=== PATIENT | female | born 1970 | race Caucasian/White ===

== ENCOUNTER 2018-12-05 23:26 | Observation (INO) | payer OTHER ==
[2018-12-06 01:07] LABS: Absolute Monocytes 0.5 K/uL (0.1-1.3); Basophils % 0.4 % (0-1.3); Eosinophils % 0.5 % (0-4.4); Hematocrit 32.5 % (36.0-45.0); Lymphocytes % 46.6 % (15.3-44.8); MPV 10.2 fL (7.6-11.3); Monocytes % 6.2 % (3.3-12.3); RBC Red Blood Cell Count 3.82 M/uL (3.86-4.86)
[2018-12-06 01:09] LABS: Protime INR 0.97
[2018-12-06 01:48] LABS: ALT/SGPT 36 U/L (12-78); AST/SGOT 25 U/L (15-37); Albumin 3.8 g/dL (3.4-5.0); Alkaline Phosphatase 95 U/L (45-117); BUN Blood Urea Nitrogen 14 mg/dL (7-18); Bicarbonate 25 mmol/L (21-32); Bilirubin Direct < 0.1 mg/dL (0-0.2); Bilirubin Total 0.3 mg/dL (0.2-1.0); Glucose Level 105 mg/dL (74-106); NT PRO-BNP 155 pg/mL (<125); Protein, Total 7.3 g/dL (6.4-8.2); Sodium Level 144 mmol/L (136-145); Troponin (Emerg Dept Use Only) < 0.02 ng/mL (0.0-0.045)
[2018-12-06 01:50] LABS: Magnesium 1.4 mg/dL (1.8-2.4); Potassium 2.9 mmol/L (3.5-5.1)
[2018-12-06] MEDS ORDERED: Magnesium Sulfate 2gm IVPB 2 G/50 ML BAG IV ONE (02:36)
[2018-12-06] MEDS ORDERED: POTASSIUM 25 MEQ EFFERV TAB ONE (02:36)
--- NOTE | 2018-12-06 03:34 | ER ---
Nurse's Notes [facility] Name: Renetta Blankenship Age: 48 yrs Sex: Female : 1970 Arrival Date: 12/05/2018 Time: 23:30 Bed 8 Private MD: Markie Ling Diagnosis: Chest pain, unspecified;Hypomagnesemia;Hypokalemia Presentation: 12/05 23:45 Presenting complaint: Patient states: midsternal CP that radiates to shoulder for past aa1 couple hours and is also feeling nauseated. Reports she also feels like she can't catch her breath and believes it is bc her PCP recently switched her from Lasix to spironolactone and she has gained 10 lbs in 1 week. Transition of care: patient was not received from another setting of care. Onset of symptoms was December 05, 2018. Risk Assessment: Do you want to hurt yourself or someone else? Patient reports no desire to harm self or others. Initial Sepsis Screen: Does the patient meet any 2 criteria? No. Patient's initial sepsis screen is negative. Does the patient have a suspected source of infection? No. Patient's initial sepsis screen is negative. Care prior to arrival: None. 23:45 Method Of Arrival: Ambulatory aa1 23:45 Acuity: MILTON 2 aa1 Triage Assessment: 23:48 General: Appears in no apparent distress. comfortable, Behavior is calm, cooperative, aa1 appropriate for age. 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 - Social history:: Smoking status: Patient/guardian denies using tobacco. - Ebola Screening: : No symptoms or risks identified at this time. Screenin/28 00:11 Abuse screen: Denies threats or abuse. Denies injuries from another. Nutritional cc3 screening: No deficits noted. Tuberculosis screening: No symptoms or risk factors identified. Fall Risk Ambulatory Aid- None/Bed Rest/Nurse Assist (0 pts). Gait- Normal/Bed Rest/Wheelchair (0 pts) Mental Status- Oriented to own ability (0 pts). Assessment: 00:11 General: Appears in no apparent distress. comfortable, Behavior is calm, cooperative, cc3 appropriate for age. Pain: Complains of pain in chest Pain radiates to left arm Pain began suddenly. Neuro: Level of Consciousness is awake, alert, obeys commands, Oriented to person, place, time, situation, Appropriate for age. Cardiovascular: Reports chest pain, Patient's skin is warm and dry. Respiratory: Airway is patent Respiratory effort is even, unlabored, Respiratory pattern is regular, symmetrical. GI: Abdomen is round non-distended. : No signs and/or symptoms were reported regarding the genitourinary system. EENT: No signs and/or symptoms were reported regarding the EENT system. Derm: No signs and/or symptoms reported regarding the dermatologic system. Musculoskeletal: Circulation, motion, and sensation intact. Range of motion: intact in all extremities. 01:28 Reassessment: Patient appears in no apparent distress at this time. Patient and/or cc3 family updated on plan of care and expected duration. Pain level reassessed. Patient is alert, oriented x 3, equal unlabored respirations, skin warm/dry/pink. 02:18 Reassessment: Patient appears in no apparent distress at this time. Patient and/or cc3 family updated on plan of care and expected duration. Pain level reassessed. Patient is alert, oriented x 3, equal unlabored respirations, skin warm/dry/pink. 03:11 Reassessment: Patient appears in no apparent distress at this time. Patient and/or cc3 family updated on plan of care and expected duration. Pain level reassessed. Patient is alert, oriented x 3, equal unlabored respirations, skin warm/dry/pink. 04:25 Reassessment: Patient appears in no apparent distress at this time. Patient and/or cc3 family updated on plan of care and expected duration. Pain level reassessed. Patient is alert, oriented x 3, equal unlabored respirations, skin warm/dry/pink. Room available in 206, report called and handed over to RUTH Zamorano for continuity of care and management. 04:48 Reassessment: Patient appears in no apparent distress at this time. Patient and/or cc3 family updated on plan of care and expected duration. Pain level reassessed. Patient is alert, oriented x 3, equal unlabored respirations, skin warm/dry/pink. Patient left ER for admission vitally stable by wheelchair escorted by audio/video technician Lakeshia. Vital Signs: 12/05 23:48 BP 141 / 72; Pulse 52; Resp 18; Temp 97.6; Pulse Ox 98% on R/A; Weight 77.11 kg; Height aa1 5 ft. 3 in. (160.02 cm); Pain 8/10; 12/06 00:30 BP 124 / 74; Pulse 54; Resp 17 S; Pulse Ox 99% on R/A; cc3 01:00 BP 122 / 85; Pulse 52; Resp 15 S; Pulse Ox 98% on R/A; cc3 01:30 BP 120 / 68; Pulse 53; Resp 13 S; Pulse Ox 100% on R/A; cc3 02:30 BP 104 / 89; Pulse 52; Resp 18 S; Pulse Ox 100% on R/A; cc3 03:08 BP 91 / 52; Pulse 50; Resp 16 S; Pulse Ox 96% on R/A; cc3 03:39 BP 97 / 57; Pulse 49; Resp 17 S; Pulse Ox 98% on R/A; cc3 04:21 BP 140 / 85; Pulse 52; Resp 18 S; Pulse Ox 99% on R/A; cc3 12/05 23:48 Body Mass Index 30.11 (77.11 kg, 160.02 cm) aa1 ED Course: 12/05 23:30 Patient arrived in ED. es 23:30 Markie Ling MD is Private Physician. es 23:46 Triage completed. aa1 23:48 Arm band placed on right wrist. Patient placed in an exam room, on a stretcher. aa1 12/06 00:10 Inserted saline lock: 20 gauge in left antecubital area, using aseptic technique. jd3 00:11 Zoe Moss is Primary Nurse. cc3 00:11 Patient has correct armband on for positive identification. Placed in gown. Bed in low cc3 position. Call light in reach. Side rails up X 1. pvc monitor on. Pulse ox on. NIBP on. 00:11 Patient maintains SpO2 saturation greater than 95% on room air. cc3 00:59 X-ray completed. Portable x-ray completed in exam room. Patient tolerated procedure kw well. 00:59 XRAY Chest (1 view) In Process Unspecified. EDMS 01:17 cD Mckeon MD is Attending Physician. gs 03:32 Stephanie Martinez MD is Hospitalizing Provider. gs 04:25 No provider procedures requiring assistance completed. Patient admitted, IV remains in cc3 place. Administered Medications: 02:25 Drug: Potassium Effervescent Tablet 50 mEq Route: PO; jd3 03:11 Follow up: Response: No adverse reaction cc3 02:30 Drug: Magnesium Sulfate 2 grams Route: IVPB; Infused Over: 2 hrs; Site: left jd3 antecubital; 04:30 Follow up: Response: No adverse reaction; IV Status: Completed infusion; IV Intake: [id number] Intake: 04:30 IV: 50ml; Total: 50ml. cc3 Outcome: 03:33 Decision to Hospitalize by Provider. 04:25 Admitted to Med/surg accompanied by tech, via wheelchair, room 206, with chart, Report cc3 called to RUTH Zamorano 04:25 Condition: stable 04:25 Instructed on the need for admit, Demonstrated understanding of instructions. 04:48 Patient left the ED. cc3 Signatures: Dispatcher [employer] Layne Grey, RN RN aa1 Estefanía Ocampo Kimberlee Dc Mckeon MD MD Huber Rivera RN RN jd3 Zoe Moss cc3 Corrections: (The following items were deleted from the chart) 03:41 03:39 BP 97 / 57; Pulse 48bpm; Resp 17bpm; Spontaneous; Pulse Ox 98% RA; cc3 cc3
--- NOTE | 2018-12-06 03:34 | EDPHYS ---
Physician Documentation [facility] Name: Renetta Blankenship Age: 48 yrs Sex: Female : 1970 Arrival Date: 12/05/2018 Time: 23:30 Bed 8 Private MD: Markie Ling ED Physician Dc Mckeon HPI: 12/06 04:31 This 48 yrs old Female presents to ER via Ambulatory with complaints of Chest gs Pain, Shortness Of Breath. 04:31 The patient or guardian reports chest pain that is located primarily in the anterior gs chest wall. Onset: 2 day(s) ago. The pain does not radiate. Associated signs and symptoms: Pertinent positives: shortness of breath. The chest pain is described as a heaviness. Duration: The patient or guardian reports multiple episodes, that are intermittent, that wax and wane, with no pattern. Modifying factors: The symptoms are alleviated by nothing. the symptoms are aggravated by nothing. Severity of pain: At its worst the pain was moderate in the emergency department the pain has resolved. The patient has experienced similar episodes in the past, a few times. The patient has been recently seen by a physician: the patient's primary care provider. 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 - Social history:: Smoking status: Patient/guardian denies using tobacco. - Ebola Screening: : No symptoms or risks identified at this time. ROS: 12/06 04:31 All other systems are negative. gs Exam: 04:31 Head/Face: Normocephalic, atraumatic. Eyes: Pupils equal round and reactive to light, gs extra-ocular motions intact. Lids and lashes normal. Conjunctiva and sclera are non-icteric and not injected. Cornea within normal limits. Periorbital areas with no swelling, redness, or edema. ENT: Nares patent. No nasal discharge, no septal abnormalities noted. Tympanic membranes are normal and external auditory canals are clear. Oropharynx with no redness, swelling, or masses, exudates, or evidence of obstruction, uvula midline. Mucous membranes moist. Neck: Trachea midline, no thyromegaly or masses palpated, and no cervical lymphadenopathy. Supple, full range of motion without nuchal rigidity, or vertebral point tenderness. No Meningismus. Chest/axilla: Normal chest wall appearance and motion. Nontender with no deformity. No lesions are appreciated. Cardiovascular: Regular rate and rhythm with a normal S1 and S2. No gallops, murmurs, or rubs. Normal PMI, no JVD. No pulse deficits. Respiratory: Lungs have equal breath sounds bilaterally, clear to auscultation and percussion. No rales, rhonchi or wheezes noted. No increased work of breathing, no retractions or nasal flaring. Abdomen/GI: Soft, non-tender, with normal bowel sounds. No distension or tympany. No guarding or rebound. No evidence of tenderness throughout. Back: No spinal tenderness. No costovertebral tenderness. Full range of motion. Skin: Warm, dry with normal turgor. Normal color with no rashes, no lesions, and no evidence of cellulitis. MS/ Extremity: Pulses equal, no cyanosis. Neurovascular intact. Full, normal range of motion. Neuro: Awake and alert, GCS 15, oriented to person, place, time, and situation. Cranial nerves II-XII grossly intact. Motor strength 5/5 in all extremities. Sensory grossly intact. Cerebellar exam normal. Normal gait. 04:31 Constitutional: The patient appears alert, awake. 04:31 ECG was reviewed by the Attending Physician. Vital Signs: 12/05 23:48 BP 141 / 72; Pulse 52; Resp 18; Temp 97.6; Pulse Ox 98% on R/A; Weight 77.11 kg; Height aa1 5 ft. 3 in. (160.02 cm); Pain 8/10; 12/06 00:30 BP 124 / 74; Pulse 54; Resp 17 S; Pulse Ox 99% on R/A; cc3 01:00 BP 122 / 85; Pulse 52; Resp 15 S; Pulse Ox 98% on R/A; cc3 01:30 BP 120 / 68; Pulse 53; Resp 13 S; Pulse Ox 100% on R/A; cc3 02:30 BP 104 / 89; Pulse 52; Resp 18 S; Pulse Ox 100% on R/A; cc3 03:08 BP 91 / 52; Pulse 50; Resp 16 S; Pulse Ox 96% on R/A; cc3 03:39 BP 97 / 57; Pulse 49; Resp 17 S; Pulse Ox 98% on R/A; cc3 04:21 BP 140 / 85; Pulse 52; Resp 18 S; Pulse Ox 99% on R/A; cc3 12/05 23:48 Body Mass Index 30.11 (77.11 kg, 160.02 cm) aa1 MDM: 02:12 Patient medically screened. 04:31 Differential diagnosis: abnormal EKG, acute myocardial infarction, coronary artery gs disease pleurisy, pneumonia. Data reviewed: vital signs, nurses notes, lab test result(s), EKG, radiologic studies, and as a result, I will admit patient. 12/06 00:43 Order name: Basic Metabolic Panel; Complete Time: 02:19 [facility] 12/06 00:43 Order name: CBC with Diff; Complete Time: 02:19 [facility] 12/06 00:43 Order name: LFT's; Complete Time: 02:19 [facility] 12/06 00:43 Order name: Magnesium; Complete Time: 02:19 [facility] 12/06 00:43 Order name: NT PRO-BNP; Complete Time: 02:19 [facility] 12/06 00:43 Order name: PT-INR; Complete Time: 02:19 [facility] 12/06 00:43 Order name: Troponin (emerg Dept Use Only); Complete Time: 02:19 [facility] 12/06 00:43 Order name: XRAY Chest (1 view) [facility] 12/06 03:58 Order name: Echo with Doppler [facility] 12/06 03:58 Order name: Lipid Profile [facility] 12/06 03:58 Order name: Lipid Profile [facility] 12/06 03:58 Order name: Troponin I [facility] 12/06 03:58 Order name: Troponin I [facility] 12/06 00:22 Order name: EKG; Complete Time: 00:23 [facility] 12/06 00:22 Order name: EKG - Nurse/Tech; Complete Time: 00:22 [facility] 12/06 00:43 Order name: Cardiac monitoring; Complete Time: 00:44 [facility] 12/06 00:43 Order name: IV Saline Lock; Complete Time: 00:44 [facility] 12/06 00:43 Order name: Labs collected and sent; Complete Time: 00:52 [facility] 12/06 00:43 Order name: O2 Per Protocol; Complete Time: 00:44 [facility] 12/06 00:43 Order name: O2 Sat Monitoring; Complete Time: 00:44 [facility] 12/06 03:58 Order name: Heart Healthy [facility] EC:31 Rate is 60 beats/min. Rhythm is regular. [place] interval is prolonged. QRS interval is gs normal. T waves are Inverted in lead aVL. Clinical impression: NSR w/ Non-specific ST/T Changes. Interpreted by me. Administered Medications: 02:25 Drug: Potassium Effervescent Tablet 50 mEq Route: PO; jd3 03:11 Follow up: Response: No adverse reaction cc3 02:30 Drug: Magnesium Sulfate 2 grams Route: IVPB; Infused Over: 2 hrs; Site: left [facility] antecubital; 04:30 Follow up: Response: No adverse reaction; IV Status: Completed infusion; IV Intake: [id number] Disposition: 04:31 Critical Care:. Disposition: 12/06/18 03:33 Hospitalization ordered by Stephanie Martinez for Observation. Preliminary diagnosis are Chest pain, unspecified, Hypomagnesemia, Hypokalemia. - Bed requested for Telemetry/MedSurg (observation). - Status is Observation. cc3 - Condition is Stable. - Problem is new. - Symptoms have improved. UTI on Admission? No Critical care time excluding procedures: 04:31 Critical care time: Bedside Care: 10 minutes, Consultation: 10 minutes, Family gs Intervention: 10 minutes. Total time: 30 minutes Signatures: Dispatcher [employer] [facility] Teodora Castañeda RN RN mw Autenrieth, Alissa, RN RN aa1 Dc Mckeon MD MD gs Davies, Jonathon, RN RN jd3 Zoe Moss cc3 Corrections: (The following items were deleted from the chart) 04:09 03:33 Hospitalization Ordered by Stephanie Martinez MD for Observation. Preliminary mw diagnosis is Chest pain, unspecified; Hypomagnesemia; Hypokalemia. Bed requested for Telemetry/MedSurg (observation). Status is Observation. Condition is Stable. Problem is new. Symptoms have improved. UTI on Admission? No. 04:48 04:09 12/06/2018 03:33 Hospitalization Ordered by Stephanie Martinez MD for Observation. cc3 Preliminary diagnosis is Chest pain, unspecified; Hypomagnesemia; Hypokalemia. Bed requested for Telemetry/MedSurg (observation). Status is Observation. Condition is Stable. Problem is new. Symptoms have improved. UTI on Admission? No. mw
[2018-12-06] MEDS ORDERED: ACETAMINOPHEN 500 MG TAB PO PRN (03:54)
[2018-12-06] MEDS ORDERED: ALPRAZOLAM 0.25 MG TABLET PO PRN (03:54)
[2018-12-06] MEDS ORDERED: MORPHINE 4 MG/ML SYR IV PRN (03:54)
[2018-12-06 05:07] VITALS: BMI 30.1
[2018-12-06 05:46] VITALS: O2SAT 99
--- NOTE | 2018-12-06 05:58 | EKG ---
Test Date: 2018-12-05 Test Time: 23:55:41 Licensed Occupational Therapy Assistant: JORI MEASUREMENT RESULTS: Intervals: Rate: 60 MD: 274 QRSD: 82 QT: 432 QTc: 432 Calder: P: 64 MD: 274 QRS: 71 T: 65 INTERPRETIVE STATEMENTS: Sinus rhythm with 1st degree AV block Nonspecific ST abnormality Abnormal ECG Compared to ECG 11/04/2014 14:49:56 ST (T wave) deviation now present Electronically Signed On 12-06-18 05:57:36 CDT by Timothy Maicel
[2018-12-06] MEDS ORDERED: METOPROLOL TAR 50 MG TAB PO SCH (06:00)
[2018-12-06 07:10] LABS: HDL Cholesterol 61 mg/dL (40-60); LDL Cholesterol, Calculated 38 (<130); Troponin I < 0.02 ng/mL (0.0-0.045)
[2018-12-06] MEDS ORDERED: POTASSIUM CL SA 10 MEQ TAB PO ONE (07:30)
--- NOTE | 2018-12-06 08:01 | P.HP ---
Certification for Inpatient Patient admitted to: Observation With expected LOS: <2 Midnights Patient will require the following post-hospital care: None Practitioner: I am a practitioner with admitting privileges, knowledge of patient current condition, hospital course, and medical plan of care. Services: Services provided to patient in accordance with Admission requirements found in Title 42 Section 412.3 of the Code of Federal Regulations Patient History Date of Service: 12/06/18 Reason for admission: Chest pain rule out acute coronary syndrome History of Present Illness: Patient is a 48-year-old female came to the hospital with chest discomfort. It was mainly in the sternal region. There was radiation to the left arm. Patient started having the symptoms around 11:30 p.m.. She came into the hospital for further evaluation. In the ER, patient had EKGs and troponins which were negative. Patient does have a history of hypertension, dyslipidemia , and diabetes. Patient will be admitted to the hospital for further treatment. Will do an echocardiogram and a stress test this morning. Will determine further intervention after these tests are completed. Allergies No Known Drug Allergies Allergy (Verified 12/06/18 05:00) Unknown No Known Allergies Allergy (Uncoded 12/06/18 05:00) Unknown Home Medications: Atorvastatin Calcium 40 mg PO BEDTIME 12/06/18 Estradiol [Estrace] 1 mg PO DAILY 12/06/18 Lansoprazole [Prevacid] 40 mg PO DAILY 12/06/18 Lisinopril 20 mg PO DAILY 12/06/18 Metformin HCl 500 mg PO BID 12/06/18 Spironolactone 25 mg PO BID 12/06/18 Zolpidem Tartrate [Ambien] 10 mg PO BEDTIME 12/06/18 clonazePAM [Klonopin] 1 mg PO DAILYPRN PRN 12/06/18 - Past Medical/Surgical History Has patient received pneumonia vaccine in the past: No Diabetic: Yes -: DM -: Hyperlipidemia -: HTN -: Anxiety -: Insomnia -: GERD -: Hysterctomy -: Wrist Surgery - Family History Father Medical History: Hypertension, Diabetes Mother Medical History: Hypertension, Diabetes Brother Medical History: Hypertension - Social History Smoking Status: Never smoker Alcohol use: Yes CD- Drugs: No Caffeine use: No Place of Residence: Home Review of Systems 10-point ROS is otherwise unremarkable Physical Examination - Vital Signs Temperature: 96.9 F Blood Pressure: 138/69 Pulse: 48 Respirations: 18 Pulse Ox (%): 97 - Physical Exam General: Alert, In no apparent distress, Oriented x3 HEENT: Atraumatic, Mucous membr. moist/pink, EOMI, Sclerae nonicteric Neck: Supple, 2+ carotid pulse no bruit, No LAD, Without JVD or thyroid abnormality Respiratory: Clear to auscultation bilaterally, Normal air movement Cardiovascular: Regular rate/rhythm, Normal S1 S2 Gastrointestinal: Normal bowel sounds, Soft and benign, Non-distended, No tenderness Musculoskeletal: No clubbing, No swelling, No tenderness Integumentary: No rashes Neurological: Normal speech, Normal strength at 5/5 x4 extr, Normal tone, Sensation intact, Cranial nerves 3-12 intact, Normal affect Lymphatics: No axilla or inguinal lymphadenopathy - Studies Laboratory Data (last 24 hrs) 12/06/18 00:10: PT 11.5, INR 0.97 12/06/18 00:10: WBC 8.6, Hgb 10.7 L, Hct 32.5 L, Plt Count 232 12/06/18 00:10: Sodium 144, Potassium 2.9 L*, BUN 14, Creatinine 1.07, Glucose 105, Magnesium 1.4 L*, Total Bilirubin 0.3, AST 25, ALT 36, Alkaline Phosphatase 95 Assessment & Plan - Problems (Diagnosis) (1) Chest pain, rule out acute myocardial infarction Current Visit: Yes Status: Acute (2) Hypertension Current Visit: Yes Status: Acute (3) Type 2 diabetes mellitus Current Visit: Yes Status: Acute (4) Dyslipidemia Current Visit: Yes Status: Acute - Plan 1. Serial troponins and EKG 2. Cardiology consultation 3. Echocardiogram and stress test this morning 4. Anti-platelet therapy, anti coagulation, beta-trevon, statin, and O2 as needed 5. IV morphine for pain 6. Nitro p.r.n. Discharge Plan: Home Plan to discharge in: Greater than 2 days - Advance Directives Does patient have a Living Will: No Does patient have a Durable POA for Healthcare: No - Code Status/Comfort Care Code Status Assessed: Yes Code Status: Full Code Critical Care: No Time Spent Managing PTS Care (In Minutes): 45
--- NOTE | 2018-12-06 08:22 | RAD REPORT ---
EXAM DESCRIPTION: Rosio Single View12/06/2018 1:02 am CLINICAL HISTORY: Chest pain COMPARISON: 2013 FINDINGS: The lungs appear clear of acute infiltrate. The heart is normal size IMPRESSION: No acute abnormalities displayed
[2018-12-06] MEDS ORDERED: REGADENOSON 0.4 MG/5 ML SYR IV ONE (08:51)
[2018-12-06] MEDS ORDERED: ASPIRIN EC 81 MG TAB PO SCH (09:00)
[2018-12-06] MEDS ORDERED: ENOXAPARIN 40 MG/0.4 ML SQ SCH (09:00)
--- NOTE | 2018-12-06 12:03 | RAD REPORT ---
EXAM DESCRIPTION: NM - Rest Stress Cardiac Imaging - 12/06/2018 11:57 am CLINICAL HISTORY: Chest pain COMPARISON: None. TECHNIQUE: The patient was administered approximately 10 mCi of Tc 99m Sestamibi prior to resting SP ECT imaging of the heart. The patient was then administered approximately 30 mCi of Tc 99m Sestamibi following exercise or pharmacologic stress. Multiplanar SPECT images were reviewed. FINDINGS: The end diastolic volume is 99 ml, the end systolic volume is 39 ml, and the ejection frac tion is 61 %. Moderate-sized area diminished activity seen in the midportion of the anterior wall on stress imaging . Findings are absent or less pronounced on rest sequencing. No other areas of suspected stress ische etelvina. No scarring identified. IMPRESSION: Anterior wall stress ischemia. Ventricular volumes and ejection fraction are normal range.
--- NOTE | 2018-12-06 12:20 | TREADPHA ---
DX: CHEST PAIN Date of Study: 12/06/2018 Ht: 5 3 Wt: 170 lb 0 oz Consulting Physician: ANGIE MEDICATIONS: TYLENOL, XANAX, ASPIRIN, LOVENOX HISTORY: 48 YEAR OLD FEMALE WITH COMPLAINTS OF CHEST PAIN. HISTORY OF DIABETES MELLITUS AND HYPERTENSION. PHYSICIAL EXAMINATION: RESTING B.P.: 150/90 RESTING H.R.: 56 RESTING EKG: NORMAL PROTOCOL: LEXISCAN EXERCISE TIME: 3:30 B.P. AT PEAK STRESS: 140/81 IMPRESSION: LEXISCAN INJECTED, CARDIOLITE INJECTED PER PROTOCOL. SEE NUCLEAR MEDICINE REPORT. NO SUPRAVENTRICULAR TACHYCARDIA. NO VENTRICULAR TACHYCARDIA. NO PREMATURE VENTRICULAR COMPLEXES. DENIED CHEST PAIN. NON-DIAGNOSTIC ELECTROCARDIOGRAM WITH LEXISCAN STRESS.
--- NOTE | 2018-12-06 12:23 | ECHO ---
HEIGHT: 5 ft 3 in WEIGHT: 170 lb 0 oz DATE OF STUDY: 12/06/[address]: Stephanie Martinez MD 2-DIMENSIONAL: YES M.MODE: YES DOPPLER: YES COLOR FLOW: YES TDS: PORTABLE: DEFINITY: BUBBLE STUDY: DIAGNOSIS: CHEST PAIN CARDIAC HISTORY: CATHERIZATION: NO SURGERY: NO PROSTHETIC VALVE: NO PACEMAKER: NO MEASUREMENTS (cm) DIASTOLIC (NORMALS) SYSTOLIC (NORMALS) IVSd 1.0 (0.6-1.2) LA Diam 3.3 (1.9-4.0) LVEF 64% LVIDd 4.5 (3.5-5.7) LVIDs 2.9 (2.0-3.5) %FS 35% LVPWd 0.9 (0.6-1.2) Ao Diam 2.2 (2.0-3.7) 2 DIMENSIONAL ASSESSMENT: RIGHT ATRIUM: NORMAL LEFT ATRIUM: NORMAL RIGHT VENTRICLE: NORMAL LEFT VENTRICLE: NORMAL TRICUSPID VALVE: NORMAL MITRAL VALVE: NORMAL PULMONIC VALVE: NORMAL AORTIC VALVE: NORMAL PERICARDIAL EFFUSION: NONE AORTIC ROOT: NORMAL LEFT VENTRICULAR WALL MOTION: NORMAL DOPPLER/COLOR FLOW: TRACE MITRAL AND TRICUSPID REGURGITATION. NORMAL RIGHT VENTRICULAR SYSTOLIC PRESSURE. COMMENTS: NORMAL 2-DIMENSIONAL ECHOCARDIOGRAM. TRACE MITRAL AND TRICUSPID REGURGITATION. TECHNOLOGIST: RUDY MOSS
[2018-12-06 15:17] VITALS: BP 134/66; TEMP 97.9
[2018-12-06 15:38] LABS: Urine Appearance CLOUDY; Urine Bilirubin NEGATIVE (NEG); Urine Blood 1+ (NEG); Urine Color YELLOW; Urine Glucose NEGATIVE (NEG); Urine Protein NEGATIVE (NEG); Urine Specific Gravity 1.015 (1.005-1.030); Urine Urobilinogen 0.2 mg/dL (0.2-1.0); Urine pH 6.5 (5.0-7.0)
[2018-12-06 15:44] LABS: Urine Microscopic Reflex ORDER UMIC
[2018-12-06 15:57] LABS: Urine Bacteria >50 /HPF (<20); Urine Culture Reflex Order REFLEXED; Urine RBC <5 /HPF (NONE SEEN); Urine Trichomonas PRESENT (NONE SEEN)
== END 2018-12-06 16:07 | disposition home or self-care (01) ==
LOC: ER 23:26 → ERHOLD 12-06 03:55 → 2ND 12-06 04:26
PROVIDERS: ADMIT Hospitalist; ATTEND Hospitalist
DX: R07.9 Chest pain, unspecified (principal); I10 Essential (primary) hypertension; E11.9 Type 2 diabetes mellitus without complications; E78.5 Hyperlipidemia, unspecified
CPT/HCPCS: 36415; 71045; 78452; 80048; 80061; 80076; 81003; 81015; 83735; 83880; 84132; 84484; 85025; 85610; 87077; 87086; 87088; 87186; 93005; 93017; 93306; 96365; 96366; 99285; A9500; G0378; J1650; J2785; J3475

== ENCOUNTER 2021-01-02 19:52 | Inpatient (IN) | payer BC ==
--- OUTSIDE RECORDS SUMMARY | 2021-01-02 19:58 | XMS REPORT | Continuity of Care Document ---
:1970 Author Organization [facility] t Address [address] [place] [address] Care Team Providers Name Role Phone WALKER Attending Clinician Unavailable Payers Payer Name Policy Type Policy Number Effective Date Expiration Date S ource Problems Condition Condition Condition Status Onset Resolution Last Treating Co mments Source Name Details Category Date Date Treatment Clinician Date Malabsorpt Malabsorpt Problem Active [facility] Malnutriti Malnutriti Problem Active [facility] [place] [facility] Vitamin D Vitamin D Problem Active [facility] deficiency deficiency [facility] [place] [facility] Allergies, Adverse Reactions, Alerts Allergy Allergy Status Severity Reaction(s) Onset Inactive Treating Comm ents Source Name Type Date Date Clinician No Known DA Active U 2011-09 [facility] All[facility]ie 09-19 [facility] 00:00: [address] Medications This patient has no known medications. Vital Signs Vital Name Observation Time Observation Value Comments Source Systolic blood 2020-09-17 15:39:00 116 mm[Hg] [facility] [place] [facility] Diastolic blood 2020-09-17 15:39:00 69 mm[Hg] [facility] [place] [facility] Body height 2020-09-17 15:39:00 62 [in_us] [facility] [place] [facility] Body mass index 2020-09-17 15:39:00 26.24 kg/m2 [facility] rs[facility] of (BMI) [Ratio] [place] [facility] Weight 2020-09-17 15:39:00 143.4375 [lb_av] [facility] [place] [facility] Body temperature 2020-09-17 15:39:00 96.9 [degF] [facility] [place] [facility] Heart Rate 2020-09-17 15:39:00 73 /min [facility] [place] [facility] Systolic blood 2020-09-17 15:30:00 110 mm[Hg] [facility] [place] [facility] Diastolic blood 2020-09-17 15:30:00 73 mm[Hg] [facility] [place] [facility] Body height 2020-09-17 15:30:00 62 [in_us] [facility] [place] [facility] Body mass index 2020-09-17 15:30:00 35.4 kg/m2 Unive rsity of (BMI) [Ratio] [place] [facility] Weight 2020-09-17 15:30:00 193.5625 [lb_av] [facility] [place] [facility] Body temperature 2020-09-17 15:30:00 97.2 [degF] [facility] [place] [facility] Heart Rate 2020-09-17 15:30:00 77 /min [facility] [place] [facility] Procedures This patient has no known procedures. Encounters Start End Encounter Admission Attending Care Care Encounter Source Date/Time Date/Time Type Type Clinicians Facility Department ID 2020-12-30 2020-12-30 Outpatient [id number] 14:20:00 14:20:00 2020-10-09 2020-10-09 Outpatient [facility] [id number] [facility] 06:59:00 06:59:00 2020-09-29 2020-09-29 Outpatient [id number] [facility]00[facility] 2020-09-17 2020-09-17 Appointmen KASSI JAVIER [id number] [facility] 15:15:00 15:15:00 t; FALGUNI JAVIER M.D. [facility] Oscar MONTES DE OCA M.D[facility] ans Results Test Description Test Time Test Comments Results Result Comments Source [QL] CBC (INCLUDES DIFF/PLT) 2020-09-17 16:24:00 Test Item Value Reference Range Interpretation Comme nts WHITE BLOOD CELL COUNT (test code = WHITE BLOOD CELL 8.7 {Thousa nd/u} 3.8-10.8 N COUNT) RED BLOOD CELL COUNT (test code = RED BLOOD CELL 4.28 {Million/uL} 3.80-5.10 N COUNT) HEMOGLOBIN; Below Low Threshold (test code = 11.5 g/dl 11.7-15.5 70254-4) HEMATOCRIT; Normal (test code = 4544-3) 36.2 % 35.0-45.0 N MCV; Normal (test code = 787-2) 84.6 fL 80.0-100.0 N MCHC; Below Low Threshold (test code = 37590-0) 31.8 g/dl 32.0-3 6.0 RDW; Normal (test code = 788-0) 13.0 % 11.0-15.0 N PLATELET COUNT; Normal (test code = 777-3) 326 {Thousand/u} 140-400 N MPV; Normal (test code = 37326-0) 12.0 fL 7.5-12.5 N ABSOLUTE NEUTROPHILS (test code = ABSOLUTE 4759 {cells/uL} 1500-780 0 N NEUTROPHILS) ABSOLUTE LYMPHOCYTES (test code = ABSOLUTE 3323 {cells/uL} 850-3900 N LYMPHOCYTES) ABSOLUTE MONOCYTES (test code = ABSOLUTE MONOCYTES) 539 {cells/uL} 200-950 N ABSOLUTE EOSINOPHILS (test code = ABSOLUTE 26 {cells/uL} 15-500 N EOSINOPHILS) ABSOLUTE BASOPHILS (test code = ABSOLUTE BASOPHILS) 52 {cells/uL} 0 -200 N NEUTROPHILS (test code = NEUTROPHILS) 54.7 % N LYMPHOCYTES (test code = LYMPHOCYTES) 38.2 % N MONOCYTES; Normal (test code = 48991-5) 6.2 % N EOSINOPHILS; Normal (test code = 27140-2) 0.3 % N BASOPHILS; Normal (test code = 71837-4) 0.6 % N [facility][QL] PTH, INTACT (WITHOUT CALCIUM)2020-09-17 16:24:00 Test Item Value Reference Range Interpretation Comments PARATHYROID 55 pg/ml 14-64 N Interpretive Gu acacia Intact HORMONE, INTACT PTH (test code = Calcium-------- PARATHYROID HORMONE, INTACT) -------Norm al Parathyroid Normal NormalHypoparat hyroidism Low or Low Norm al LowHyperparathy roidism Primary Normal or High High Secondary High Normal or Low Tertiary High HighNon-Parathy roid Hypercalcemia Low or Low Normal High [facility][QL] VITAMIN E (TOCOPHEROL)2020-09-17 16:24:00 Test Item Value Reference Range Interpretation Comments ALPHA-TOCOPHEROL 29.9 mg/L Reference R amandeep (test code = 5.7-19.9 mg/L ALPHA-TOCOPHEROL) Levels of alpha-tocopherol <5 mg/L are consistent with Vitamin E deficiency in adults.Vitamin supplementation within 24 hours prior to blood draw may affect the accuracy of results. T his test was developed and i ts analytical perf ormance characteristics have been determined by [employer]. It has not been cleared or approved by theFDA. This as say has been validated pursu ant to the CLIA regulation s and is used for clinic al purposes. [id number] 2.3 mg/L <4.4 This test was developed and SOFIA (test code = its analyt ical performance [id number] characteri stics have been SOFIA) determined by [employer]. It has not been cleared or approved by theFDA. This as say has been validated pursu ant to the CLIA regulation s and is used for clinic al purposes. [facility][QL] FOLATE, [id number] 16:24:00 Test Item Value Reference Range Interpretation Comments FOLATE, SERUM (test 16.9 ng/ml N Referenc e Range code = FOLATE, Low: SERUM) <3.4 Borderline: 3.4-5.4 Normal: >5.4 [facility][QL] TSH, 3RD [id number] 16:24:00 Test Item Value Reference Range Interpretation Comments TSH; Normal (test 1.81 {MIU/L} N Reference Range code = 44501-8) > or = 20 Years 0.40-4.5 0 Range s First trimes ter 0.26-2.66 Second trimeste r 0.55-2.73 Third trimester 0.43-2.91 [facility][QL] VITAMIN [id number] 16:24:00 Test Item Value Reference Range Interpretation Comments VITAMIN B12 (test code = VITAMIN 536 pg/ml 200-1100 N B12) [facility][QL] VITAMIN B1, WHOLE [id number] 16:24:00 Test Item Value Reference Range Interpretation Comments VITAMIN B1, WHOLE 129 nmol/L 78-185 Vitamin corcoran pplementation BLOOD (test code = within 24 hours prior VITAMIN B1, WHOLE toblood dr clark may affect BLOOD) the accuracy of results. This test was developed and its analyti randall performance characteristics have been determined by [employer]. It has not been cleared or approved by theFDA. This assay has been validated pursuant to the CLIA reg ulations and is used for clinical purposes. [facility][QL] HEMOGLOBIN [id number] 16:24:00 Test Item Value Reference Range Interpretation Comments HEMOGLOBIN A1c; 6.8 {% of <5.7 For someone without Above High total} known diabetes, a Threshold (test hemoglobin A 1cvalue of code = 4548-4) 6.5% or great er indicates that they may have diabet es and this should be confirmed with a follow-up test. For someone with kn own diabetes, a dianne ue <7% indicates that their diabetes is wel l controlled and a value greater than or equal to 7% indicates suboptimal cont rol. A1c targets justin uld be individualized based on duration of diabetes, age, comorbid condit ions, and other considerations. Currently, no consensus exist s regarding use ofhemoglobin A1 c for diagnosis of di abetes for children. [facility][QL] VITAMIN A (RETINOL)2020-09-17 16:24:00 Test Item Value Reference Range Interpretation Comments VITAMIN A (test 103 {mcg/dl} 38-98 Clin Chem Vol. code = VITAMIN A) 34.No.8. p [id number]. 1998Vitamin supplementation within 24 hours prior to blood draw may affect the accuracy of res ults. This test was d soledad and its analyti randall performance characteristics have been determined by [employer]. It has not been cleared or approved by theFDA. This assay has been valida sebastian pursuant to the CLIA regulations and is used for clinical pu rposes. [facility][Q] QUESTASSURED 25-OH VIT D, (D2,D3), LC/MS/MS 2020-09-17 16:24:00 Test Item Value Reference Range Interpretation Comments VITAMIN D, 37 ng/ml 30-100 (Note) Vitamin D, 25-Hydroxy 25-OH, TOTAL reports concent rations of two (test code = common forms, 2 5-OHD2 and VITAMIN D, 25-OHD3. 25-OHD 3 indicates both 25-OH, TOTAL) endogenous pro duction and supplementation . 25-OHD2 is an indicator of ex ogenous sources such as diet o r supplementation . Therapy is based on measu rement of Total 25-OHD, with le vels <20 ng/mL indicative of V itamin D deficiency, whi le levels between 20 ng/m L and 30 ng/mL suggest insuffi ciency. Optimal levels are > or = 30 ng/mL. Vitamin D is fa t-soluble and therefore inadv ertent or intentional ing estion of excessively hig h amounts could be toxic. Studi es in children and adults sugg est blood levels would need to e xceed 150 ng/mL before there i s any concern. Tamir HAWKINS, Marifer MIRAMONTES, Nadeen sanderson PEÑA, et al. Evaluation, madelyn atment and prevention of v itamin D deficiency: an Endocrine Society clinica l practice guideline. J Cl in Endocrinol Metab. 2011;96( 7):1911-30. For additional info rmation, please refer to http://[employer]/faq/FAQ19 9 VITAMIN D, 37 ng/ml Reference range : Not established 25-OH, D3 (test code = VITAMIN D, 25-OH, D3) VITAMIN D, <4.0 (Note)Reference range: Not 25-OH, D2 established Thi s test was (test code = developed and i ts analytical VITAMIN D, performancechar acteristics have 25-OH, D2) been determined by [employer]. It has not beencle ared or approved by the [place] Food and Drug Administration. Thisassay has been validated pursuant to the CLIA regulation and is usedfor Clinical purpos es.MDFmed [id number] [address],[address] [facility] [id number] 00MicDonn Herrera Note 1 No te 1 For additional info rmation, please refer to http://[employer] n[employer]/faq/FAQ19 9 (This link is being provided for informational/e ducational purposes only.) [facility][QL] LIPID [id number] 16:24:00 Test Item Value Reference Range Interpretation Comments CHOLESTEROL, 286 mg/dl <200 TOTAL; Above High Threshold (test code = 2093-3) HDL CHOLESTEROL; 61 mg/dl > OR = 50 N Normal (test code = 2085-9) TRIGLYCERIDES; 431 mg/dl <150 If a non-fast ing specimen Above High was collected, Threshold (test considerrepe at code = 2571-8) triglyceride testing on a fasting specime nif clinically debra cated. Tatiana et al. J. of Clin. Lipidol. 2015;9:129-169. LDL-CHOLESTEROL See Comment LDL choleste rol not (test code = calculated. Tri glyceride 27273-2) levelsgreater t quinones 400 mg/dL invalidat e calculated LDL results. Reference range : <100 Desirable range <100 mg/dL for prima ry prevention; <7 0 mg/dL for patients wi th CHD or diabetic patien ts with > or = 2 CHD risk factors. LDL-C is now ca lculated using the Adriana Espitia calculation, wh ich is a validated novel method providing shannon r accuracy than the Friede donna equation in the estimation of L DL-C. Jaron SS et al . TARIQ. 2013;310(33): 9 288-6534 (http://educati onapiOmat.Tracab/f aq/CJL045) CHOL/HDLC RATIO 4.7 {CALC} <5.0 N (test code = CHOL/HDLC RATIO) NON HDL 225 {MG/DL <130 Non-HDL level > or = 220 CHOLESTEROL (test RANDALL} is very hi gh and may code = NON HDL indicate gene tic familial CHOLESTEROL) hypercholestero lemia (FH). Clinical assessment and measurement of blood lipid levels sh ould be considered for all first-degree re latives of patients with a n FH diagnosis. For patients with diabetes p sara 1 major ASCVD ris k factor, treating to a n on-HDL-C goal of <100 mg /dL (LDL-C of <70 mg/dL) i s considered a th erapeutic option. [facility][QL] IRON AND TOTAL IRON BINDING CAPACITY 2020-09-17 16:24:00 Test Item Value Reference Range Interpretation Comments IRON, TOTAL (test code = 51 {mcg/dl} 40-190 N IRON, TOTAL) IRON BINDING CAPACITY (test 493 {mcg/dL ca} 250-450 code = IRON BINDING CAPACITY) % SATURATION (test code = % 10 {% CALC} 16-45 SATURATION) [facility][QL] CMP [id number] 16:24:00 Test Item Value Reference Range Interpretation Comments GLUCOSE; Above High 162 mg/dl 65-139 Non-fast ing Threshold (test code referen ce interval = 1547-9) UREA NITROGEN (BUN) 27 mg/dl 7-25 (test code = UREA NITROGEN (BUN)) CREATININE (test code 1.28 mg/dl 0.50-1.10 = CREATININE) eGFR NON-AFR. 49 {ML/MIN/1.7} > OR = 60 HONDURAN (test code = eGFR NON-AFR. HONDURAN) eGFR 57 {ML/MIN/1.7} > OR = 60 (test code = eGFR ) BUN/CREATININE RATIO 21 {CALC} 6-22 N (test code = BUN/CREATININE RATIO) SODIUM (test code = 140 mmol/L 135-146 N SODIUM) POTASSIUM (test code 3.8 mmol/L 3.5-5.3 N = POTASSIUM) CHLORIDE (test code = 101 mmol/L 98-110 N CHLORIDE) CARBON DIOXIDE (test 24 mmol/L 20-32 N code = CARBON DIOXIDE) CALCIUM (test code = 10.2 mg/dl 8.6-10.2 N CALCIUM) PROTEIN, TOTAL (test 7.8 g/dl 6.1-8.1 N code = PROTEIN, TOTAL) ALBUMIN (test code = 4.7 g/dl 3.6-5.1 N ALBUMIN) GLOBULIN (test code = 3.1 {G/DL 1.9-3.7 N GLOBULIN) CALC} ALBUMIN/GLOBULIN 1.5 {CALC} 1.0-2.5 N RATIO (test code = ALBUMIN/GLOBULIN RATIO) BILIRUBIN, TOTAL; 0.3 mg/dl 0.2-1.2 N Normal (test code = 11169-1) ALKALINE PHOSPHATASE 56 u/l 31-125 N (test code = ALKALINE PHOSPHATASE) AST; Above High 110 u/l 10-35 Threshold (test code = 1916-6) ALT; Above High 86 u/l 6-29 Threshold (test code = 1742-6) [facility] [id number] 06:08:00 Test Item Value Reference Range Interpretation Comments SODIUM (test code = 141 MMOL/L 137-145 N NA) POTASSIUM (test code = 3.7 MMOL/L 3.5-5.1 N K) CHLORIDE (test code = 98 MMOL/L 98-107 N CL) CARBON DIOXIDE (test 30 MMOL/L 22-30 N code = CO2) GLUCOSE (test code = 118 MG/DL 74-106 H GLU) BLOOD UREA NITROGEN 20 MG/DL 7-17 H (test code = BUN) GLOMERULAR FILTRATION 60 Report ing units: RATE (test code = GFR) ml/mi n/1.73 m2 (Modified MDRD Formula)Referen ce Range: > or = 6 0 ml/min/1.73 m2 CREATININE (test code 1.00 MG/DL 0.52-1.04 N = CREAT) CALCIUM (test code = 10.0 MG/DL 8.4-10.2 N CA) LIPID PROFILE (CORONARY RISK)2018-12-15 06:08:00 Test Item Value Reference Range Interpretation Comments TRIGLYCERIDES (test 229 MG/DL TRIGLYCE RIDES code = TRIG) REFERENCE RANGE:Normal: < 150 mg/dLBorderline High: 150-199 mg/dLHi gh: 200-499 mg/dLVe ry High: >=500 mg/ dL CHOLESTEROL (test code 214 MG/DL <200 = CHOL) HDL CHOLESTEROL (test 66 MG/DL 40-59 H code = HDL) LIPOPROTEIN LDL (test 82 MG/DL 0-99 N code = LDL) OPTIMAL........ .<100 mg/dLNEAR OPTIMAL/ABOVE OPTIMAL........ .100-12 9 mg/dL BORDERLINE HIGH.........13 0-159 mg/dL HIGH.........16 0-189 mg/dL VERY HIGH...... ...>/= 190 mg/dL [id number] 06:08:00 Test Item Value Reference Range Interpretation Comments MAGNESIUM (test code = MAG) 1.8 MG/DL 1.6-2.3 N PROTHROMBIN [id number] 05:58:00 Test Item Value Reference Range Interpretation Comments PROTHROMBIN TIME 11.3 SECONDS 9.6-11.6 N PATIENT (test code = PTP) INTERNATIONAL NORMAL 1.1 0.8-1.1 N The INR is to be RATIO (test code = used only for INR) monitoring oral anticoagulantth erap y. INDICATION I NR VALUE ---- ---- ---- -------1. Prophylaxis, de ep venous thrombos is, including hig h risk surgery. 2.0 - 3.0 2. Prophylaxis, de ep venous thrombos is, hip surgery, treatment for d eep venous thrombosis or pulmonary prevention of systemic emboli sm in patients wit h valvular heart disease, atrial fibrillation, tissue heart va lve, or acute myocar dial infarction. 2.0 - 3 .0 3. Mechanical prosthesis hear t valves, recurrent syste izabel embolism. 3.0 - 4.5 Comments to Property Handler: WILL BRING TO LAB[facility] [id number] 05:58:00 Test Item Value Reference Range Interpretation Comments PTT ACTIVATED (test code = APTT) 26.4 SECONDS 22.0-33.0 N Comments to Property Handler: WILL BRING TO [facility] [id number] 05:57:00 Test Item Value Reference Range Interpretation Comments SODIUM (test code = 141 MMOL/L 137-145 N NA) POTASSIUM (test code = 3.7 MMOL/L 3.5-5.1 N K) CHLORIDE (test code = 98 MMOL/L 98-107 N CL) CARBON DIOXIDE (test 30 MMOL/L 22-30 N code = CO2) GLUCOSE (test code = 118 MG/DL 74-106 H GLU) BLOOD UREA NITROGEN 20 MG/DL 7-17 H (test code = BUN) GLOMERULAR FILTRATION 60 Report ing units: RATE (test code = GFR) ml/mi n/1.73 m2 (Modified MDRD Formula)Referen ce Range: > or = 6 0 ml/min/1.73 m2 CREATININE (test code 1.00 MG/DL 0.52-1.04 N = CREAT) CALCIUM (test code = 10.0 MG/DL 8.4-10.2 N CA) LIPID PROFILE (CORONARY RISK)2018-12-15 05:57:00 Test Item Value Reference Range Interpretation Comments TRIGLYCERIDES (test 229 MG/DL TRIGLYCE RIDES code = TRIG) REFERENCE RANGE:Normal: < 150 mg/dLBorderline High: 150-199 mg/dLHi gh: 200-499 mg/dLVe ry High: >=500 mg/ dL CHOLESTEROL (test code 214 MG/DL <200 = CHOL) HDL CHOLESTEROL (test 66 MG/DL 40-59 H code = HDL) LIPOPROTEIN LDL (test MG/DL 0-99 code = LDL) [id number] 05:57:00 Test Item Value Reference Range Interpretation Comments MAGNESIUM (test code = MAG) 1.8 MG/DL 1.6-2.3 N CBC W/AUTO [id number] 05:43:00 Test Item Value Reference Range Interpretation Comments WHITE BLOOD CELL (test code = 9.9 K/MM3 3.8-9.8 H WBC) RED BLOOD CELL (test code = 4.57 M/MM3 3.58-4.97 N RBC) HEMOGLOBIN (test code = HGB) 12.6 G/DL 11.2-14.9 N HEMATOCRIT (test code = HCT) 39.3 % 33.2-43.5 N MEAN CELL VOLUME (test code = 86 fL 80.7-99.1 N MCV) MEAN CELL HGB (test code = MCH) 27.6 pg 27.0-34.1 N MEAN CELL HGB CONCETRATION 32.1 % 32.2-35.7 L (test code = MCHC) RED CELL DISTRIBUTION WIDTH 15.5 % 12.1-15.2 H (test code = RDW) PLATELET COUNT (test code = 300 K/MM3 129-368 N PLT) MEAN PLATELET VOLUME (test code 11.2 fl 7.4-10.4 H = MPV) NEUTROPHIL % (test code = NT%) 40.4 % 43-75 L IMMATURE GRANULOCYTE % (test 0.3 % 0.0-2.0 N code = IG%) LYMPHOCYTE % (test code = LY%) 48.3 % 14-44 H MONOCYTE % (test code = MO%) 9.5 % 4-13 N EOSINOPHIL % (test code = EO%) 0.7 % 0-6 N BASOPHIL % (test code = BA%) 0.8 % 0-2 N NUCLEATED RBC % (test code = 0.0 % 0-1.0 N NRBC%) NEUTROPHIL # (test code = NT#) 4.00 K/mm3 2.0-7.6 N IMMATURE GRANULOCYTE # (test 0.03 x10 3/uL 0-0.03 N code = IG#) LYMPHOCYTE # (test code = LY#) 4.78 K/mm3 1.0-3.8 H MONOCYTE # (test code = MO#) 0.94 K/mm3 0.1-0.8 H EOSINOPHIL # (test code = EO#) 0.07 K/mm3 0.0-0.2 N BASOPHIL # (test code = BA#) 0.08 K/mm3 0.0-0.2 N NUCLEATED RBC # (test code = 0.00 K/mm3 0.0-0.1 N NRBC#)
[2021-01-02 21:05] LABS: Protime INR 1.26
[2021-01-02 21:06] LABS: Absolute Lymphocytes (CBC) 2.2 K/uL (0.7-4.9); Basophils % 0.5 % (0-1.3); Lymphocytes % 19.9 % (15.3-44.8); MPV 9.2 fL (7.6-11.3); RBC Red Blood Cell Count 2.81 M/uL (3.86-4.86)
[2021-01-02] MEDS ORDERED: ALBUTEROL INHALER 60 PUFF/8 GM IH ONE (21:11)
[2021-01-02 21:12] LABS: Urine Blood 1+ (Negative); Urine Glucose Negative (Negative); Urine Protein Trace (Negative); Urine Specific Gravity 1.025 (1.005-1.030); Urine pH 6.5 (5.0-7.0)
[2021-01-02 21:19] LABS: ALT/SGPT 76 U/L (12-78); AST/SGOT 106 U/L (15-37); Albumin 2.8 g/dL (3.4-5.0); Alkaline Phosphatase 98 U/L (45-117); BUN Blood Urea Nitrogen 10 mg/dL (7-18); Bicarbonate 21 mmol/L (21-32); Bilirubin Direct 0.2 mg/dL (0-0.2); Bilirubin Total 0.5 mg/dL (0.2-1.0); Glucose Level 130 mg/dL (74-106); Magnesium 1.8 mg/dL (1.8-2.4); NT PRO-BNP 1447 pg/mL (<125); Potassium 3.2 mmol/L (3.5-5.1); Protein, Total 7.1 g/dL (6.4-8.2); Sodium Level 140 mmol/L (136-145); Troponin (Emerg Dept Use Only) < 0.02 ng/mL (0.0-0.045)
[2021-01-02 21:20] LABS: Urine Specific Gravity/Preg 1.025 (1.005-1.030)
[2021-01-02] MEDS ORDERED: FUROSEMIDE 40 MG/4 ML VIAL ONE (21:42)
[2021-01-02] MEDS ORDERED: POTASSIUM 25 MEQ EFFERV TAB ONE (21:42)
--- NOTE | 2021-01-02 21:42 | RAD REPORT ---
EXAM DESCRIPTION: RAD - Chest Single View - 01/02/2021 9:12 pm CLINICAL HISTORY: SOB Chest pain. COMPARISON: Chest Single View dated 12/06/2018; CHEST SINGLE VIEW dated 02/10/2014; CHEST SINGLE VIEW d ated 09/14/2012; CHEST SINGLE VIEW dated 01/23/2011 FINDINGS: Portable technique limits examination quality. Moderate bilateral pulmonary opacities are present suspicious for pulmonary edema. Pneumonia would be a less likely possibility. The heart is upper limit normal in size. No displaced fractures.
[2021-01-02 21:43] LABS: SARS-COV-2 RT PCR NEGATIVE (NEGATIVE)
[2021-01-02] MEDS ORDERED: CEFTRIAXONE/SWI 1gm 1 GM/10 ML SYR ONE (21:43)
[2021-01-02 22:21] LABS: Urine Bacteria LOADED /HPF (<20)
[2021-01-02] MEDS ORDERED: MORPHINE 4 MG/ML SYR ONE (22:59)
[2021-01-02] MEDS ORDERED: KCL 20 MEQ/100 mL IVPB 20 MEQ/100 ML BAG IV ONE (22:59)
[2021-01-02] MEDS ORDERED: ONDANSETRON 4 MG/2 ML VIAL ONE (22:59)
[2021-01-02] MEDS ORDERED: NA CHLORIDE 0.9% 250 ML ONE (22:59)
--- NOTE | 2021-01-03 02:30 | ER ---
Nurse's Notes [facility] Name: Renetta Blankenship Age: 50 yrs Sex: Female : 1970 Arrival Date: 01/02/2021 Time: 19:54 Bed 2 Private MD: Diagnosis: Congestive Heart Failure, New Onset;Anemia Presentation: 01/02 20:12 Chief complaint: Patient states: she is having SOB since this morning she had gastric bb bypass on Monday in [facility] by Dr Homero Ordaz she contacted him and he told her to come to the ED. Coronavirus screen: At this time, the client does not indicate any symptoms associated with coronavirus-19. Coronavirus screen: shortness of breath, Client presents with at least one sign or symptom that may indicate coronavirus-19. Standard/surgical mask placed on the client. Ebola Screen: No symptoms or risks identified at this time. Initial Sepsis Screen: Does the patient meet any 2 criteria? No. Patient's initial sepsis screen is negative. Does the patient have a suspected source of infection? No. Patient's initial sepsis screen is negative. Risk Assessment: Do you want to hurt yourself or someone else? Patient reports no desire to harm self or others. Onset of symptoms was January 02, 2021. 20:12 Method Of Arrival: Ambulatory bb 20:12 Acuity: MILTON 2 bb Triage Assessment: 20:17 General: Appears uncomfortable, Behavior is calm, cooperative. Pain: Complains of pain bb in abdomen Pain currently is 6 out of 10 on a pain scale. Neuro: Level of Consciousness is awake, alert, obeys commands, Oriented to person, place, time, situation. Cardiovascular: Capillary refill < 3 seconds Patient's skin is warm and dry. Respiratory: Reports shortness of breath Respiratory effort is shallow, Respiratory pattern is tachypnea Onset: The symptoms/episode began/occurred this morning, the patient has mild shortness of breath. Derm: Skin is pink, warm \T\ dry. Musculoskeletal: Circulation, motion, and sensation intact. 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 - Social history:: Smoking status: Patient denies any tobacco usage or history of. Screenin:30 Abuse screen: Denies threats or abuse. Denies injuries from another. Nutritional mg2 screening: No deficits noted. Tuberculosis screening: No symptoms or risk factors identified. Fall Risk IV access (20 points). Assessment: 20:29 General: Appears in no apparent distress. comfortable, Behavior is calm, cooperative. mg2 Pain: Complains of pain in abdomen. Neuro: Level of Consciousness is awake, alert, obeys commands, Oriented to person, place, time, situation. Cardiovascular: Capillary refill < 3 seconds. Cardiovascular:. Respiratory: Reports shortness of breath Airway. GI: No signs and/or symptoms were reported involving the gastrointestinal system. : No signs and/or symptoms were reported regarding the genitourinary system. EENT: No signs and/or symptoms were reported regarding the EENT system. Derm: Skin is intact, is healthy with good turgor. Musculoskeletal: Circulation, motion, and sensation intact. Capillary refill < 3 seconds. 01/03 00:12 Reassessment: Patient appears in no apparent distress at this time. Patient and/or mg2 family updated on plan of care and expected duration. Pain level reassessed. Patient is alert, oriented x 3, equal unlabored respirations, skin warm/dry/pink. 03:01 Reassessment: Patient appears in no apparent distress at this time. Patient and/or mg2 family updated on plan of care and expected duration. Pain level reassessed. Patient is alert, oriented x 3, equal unlabored respirations, skin warm/dry/pink. 03:16 Reassessment: advised for admission. mg2 03:30 Reassessment: Patient appears in no apparent distress at this time. Patient and/or wh family updated on plan of care and expected duration. Pain level reassessed. Patient is alert, oriented x 3, equal unlabored respirations, skin warm/dry/pink. Cardiovascular: Rhythm is regular. Cardiovascular: Heart tones S1 S2. Respiratory: Airway is patent Breath sounds are clear bilaterally. Vital Signs: 01/02 20:12 BP 149 / 82; Pulse 84; Resp 22 S; Temp 99.1(O); Pulse Ox 98% on R/A; Weight 93.44 kg bb (M); Height 5 ft. 2 in. (157.48 cm) (R); Pain 6/10; 20:31 BP 141 / 62; Pulse 83; Resp 18; Pulse Ox 99% on R/A; mg2 22:00 BP 139 / 80; Pulse 79; Resp 18; Pulse Ox 95% on R/A; wh 01/03 00:00 BP 121 / 93; Pulse 81; Resp 18; Pulse Ox 97% on R/A; wh 01:30 BP 124 / 81; Pulse 78; Resp 18; Pulse Ox 95% on R/A; wh 03:15 BP 127 / 67; Pulse 78; Resp 18; Pulse Ox 95% on R/A; mg2 07:33 BP 124 / 57; Pulse 77; Resp 16; Pulse Ox 97% on R/A; sv 01/02 20:12 Body Mass Index 37.68 (93.44 kg, 157.48 cm) ED Course: 01/02 19:54 Patient arrived in ED. bp1 20:15 Triage completed. bb 20:17 Arm band placed on Patient placed in an exam room, on a stretcher, on pulse oximetry. bb 20:19 Tino Walker MD is Attending Physician. mh7 20:28 Larry Zaragoza, RUTH is Primary Nurse. mg2 20:31 Patient has correct armband on for positive identification. hydrographic engineer on. Pulse mg2 ox on. NIBP on. 20:31 No provider procedures requiring assistance completed. mg2 21:09 XRAY Chest (1 view) In Process Unspecified. EDMS 21:30 Inserted saline lock: 22 gauge in right hand, using aseptic technique. Blood collected. mg2 01/03 00:57 CT Chest For PE Angio In Process Unspecified. EDMS 00:57 CT Abd/Pelvis - IV Contrast Only In Process Unspecified. EDMS 02:27 Pedro Escalante is Hospitalizing Provider. mh7 05:05 Patient admitted, IV remains in place. 07:13 Primary Nurse role handed off by Larry Zaragoza, RUTH eb Administered Medications: 01/02 20:54 Drug: Albuterol HFA Inhaler 2 puffs Route: [place] [facility] Drug: Lasix (furosemide) 40 mg Route: IVP; Site: [place] [facility] 01/03 02:34 Follow up: Response: No adverse reaction 01/02 21:31 Drug: Potassium Effervescent Tablet 50 mEq Route: PO; [facility] [place] 01/03 02:34 Follow up: Response: No adverse reaction 01/02 21:31 Drug: Rocephin (cefTRIAXone) 1 grams Route: IV; Rate: per protocol; Site: [place] wrist[place] [facility] [place] 01/03 05:06 Follow up: Response: No adverse reaction; IV Status: Completed infusion 01/02 22:49 Drug: Zofran (Ondansetron) 4 mg Route: IVP; Site: right wrist; 01/03 02:33 Follow up: Response: No adverse reaction 01/02 22:51 Drug: morphine 4 mg {Note: RASS 0.} Route: IVP; Site: right wrist; 01/03 02:33 Follow up: Response: No adverse reaction; Pain is decreased; RASS: Alert and Calm (0) 01/02 22:53 Drug: Potassium Chloride 20 mEq Route: IV; Rate: calculated rate; Site: right wrist; 01/03 05:05 Follow up: Response: No adverse reaction; IV Status: Completed infusion 03:21 Drug: Ambien 10 mg Route: PO; 05:05 Follow up: Response: No adverse reaction Outcome: 02:29 Decision to Hospitalize by Provider. [facility] 03:30 Admitted to ER Hold. Please see [facility] for further documentation. 03:30 Condition: stable 03:30 Instructed on the need for admit. 08:01 Patient left the ED. sv Signatures: Dispatcher [employer] EDMS Rajwinder Ruvalcaba RN RN Leila Walsh RN RN bb Habalo, Winsy, RN RN Marian Wilkins Michele, RN RN [facility] Dianne Stahl Maurice, MD MD 7
--- NOTE | 2021-01-03 02:30 | EDPHYS ---
Physician Documentation [facility] Name: Renetta Blankenship Age: 50 yrs Sex: Female : 1970 Arrival Date: 01/02/2021 Time: 19:54 Bed 2 Private MD: ED Physician Tino Walker HPI: 01/02 20:37 This 50 yrs old Female presents to ER via Ambulatory with complaints of mh7 Shortness Of Breath. 20:37 The patient has shortness of breath at rest, with light activity. Onset: The mh7 symptoms/episode began/occurred this morning, today. Duration: The symptoms are continuous, and are unchanged since they started. The patient's shortness of breath is aggravated by coughing, exertion, light activity, is alleviated by nothing. Associated signs and symptoms: Pertinent positives: chest pain, non-productive cough, Pertinent negatives: productive cough, diaphoresis, dizziness, fever, hemoptysis, loss of consciousness, nausea, numbness in extremities, visual changes, vomiting. Severity of symptoms: At their worst the symptoms were moderate today, in the emergency department the symptoms are unchanged. The patient has been recently seen by a physician: Recent gastric bypass surgery discharged yesterday. 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 - Social history:: Smoking status: Patient denies any tobacco usage or history of. ROS: 20:37 Constitutional: Negative for fever, chills, and weight loss, Eyes: Negative for injury, mh7 pain, redness, and discharge, ENT: Negative for injury, pain, and discharge, Neck: Negative for injury, pain, and swelling, Abdomen/GI: Negative for abdominal pain, nausea, vomiting, diarrhea, and constipation, Back: Negative for injury and pain, : Negative for injury, bleeding, discharge, and swelling, MS/Extremity: Negative for injury and deformity, Skin: Negative for injury, rash, and discoloration, Neuro: Negative for headache, weakness, numbness, tingling, and seizure, Psych: Negative for depression, anxiety, suicide ideation, homicidal ideation, and hallucinations, Allergy/Immunology: Negative for hives, rash, and allergies, Endocrine: Negative for neck swelling, polydipsia, polyuria, polyphagia, and marked weight changes, Hematologic/Lymphatic: Negative for swollen nodes, abnormal bleeding, and unusual bruising. Exam: 20:37 Head/Face: Normocephalic, atraumatic. mh7 20:37 Eyes: Pupils equal round and reactive to light, extra-ocular motions intact. Lids and lashes normal. Conjunctiva and sclera are non-icteric and not injected. Cornea within normal limits. Periorbital areas with no swelling, redness, or edema. Neck: Trachea midline, no thyromegaly or masses palpated, and no cervical lymphadenopathy. Supple, full range of motion without nuchal rigidity, or vertebral point tenderness. No Meningismus. Chest/axilla: Normal chest wall appearance and motion. Nontender with no deformity. No lesions are appreciated. Cardiovascular: Regular rate and rhythm with a normal S1 and S2. No gallops, murmurs, or rubs. Normal PMI, no JVD. No pulse deficits. 20:37 Back: No spinal tenderness. No costovertebral tenderness. Full range of motion. Skin: Warm, dry with normal turgor. Normal color with no rashes, no lesions, and no evidence of cellulitis. MS/ Extremity: Pulses equal, no cyanosis. Neurovascular intact. Full, normal range of motion. Neuro: Awake and alert, GCS 15, oriented to person, place, time, and situation. Cranial nerves II-XII grossly intact. Motor strength 5/5 in all extremities. Sensory grossly intact. Cerebellar exam normal. Normal gait. Psych: Awake, alert, with orientation to person, place and time. Behavior, mood, and affect are within normal limits. 20:37 Constitutional: The patient appears in no acute distress, alert, awake, uncomfortable. 20:37 Respiratory: the patient does not display signs of respiratory distress, Respirations: normal, Breath sounds: rhonchi, that are mild, are scattered, Respiratory rate: 18 20:37 Abdomen/GI: Inspection: obese scar(s), are noted in the epigastric area, right upper quadrant and left upper quadrant, multiple small incisions, mild tenderness, no erythema, swelling, no induration, no discharge, Bowel sounds: normal, in all quadrants, Palpation: abdomen is soft and non-tender, in all quadrants, Rectal exam: the exam is deferred, because of patient request, Indicators: McBurney's point is not tender, Post's sign is negative, Rovsing's sign is negative, Obturator sign is negative, Psoas sign is negative, Liver: no appreciated palpable abnormalities, Hernia: not appreciated. 01/03 05:47 Abdomen/GI: Rectal exam: rectal tone normal, Stool: brown, guaiac positive, mh7 hemorrhoid(s), are not appreciated, mass, is not appreciated, swelling, is not appreciated, tenderness, is not appreciated, fecal impaction, is not appreciated, the exam is chaperoned by the nurse. Vital Signs: 01/02 20:12 BP 149 / 82; Pulse 84; Resp 22 S; Temp 99.1(O); Pulse Ox 98% on R/A; Weight 93.44 kg bb (M); Height 5 ft. 2 in. (157.48 cm) (R); Pain 6/10; 20:31 BP 141 / 62; Pulse 83; Resp 18; Pulse Ox 99% on R/A; mg2 22:00 BP 139 / 80; Pulse 79; Resp 18; Pulse Ox 95% on R/A; wh 01/03 00:00 BP 121 / 93; Pulse 81; Resp 18; Pulse Ox 97% on R/A; wh 01:30 BP 124 / 81; Pulse 78; Resp 18; Pulse Ox 95% on R/A; wh 03:15 BP 127 / 67; Pulse 78; Resp 18; Pulse Ox 95% on R/A; mg2 07:33 BP 124 / 57; Pulse 77; Resp 16; Pulse Ox 97% on R/A; sv 01/02 20:12 Body Mass Index 37.68 (93.44 kg, 157.48 cm) bb MDM: 02:26 Differential diagnosis: Anemia Anxiety Reaction asthma, Bronchitis CHF exacerbation, mh7 Chronic Obstructive Pulmonary Disease Myocardial Infarction pneumonia, Pneumothorax Psychogenic pulmonary edema, Pulmonary Embolism reactive airway disease. Data reviewed: vital signs, nurses notes, old medical records, lab test result(s), cardiac enzymes, CBC, electrolytes, urinalysis, EKG, radiologic studies, CT scan, plain films. Data interpreted: Pulse oximetry: on room air is 99 %. Interpretation: normal. Counseling: I had a detailed discussion with the patient and/or guardian regarding: the historical points, exam findings, and any diagnostic results supporting the discharge/admit diagnosis, the presence of at least one elevated blood pressure reading (>120/80) during this emergency department visit, lab results, radiology results, the need for further work-up and treatment in the hospital. Response to treatment: the patient's symptoms have markedly improved after treatment. 02:29 Patient medically screened. [facility] 01/02 20:31 Order name: Basic Metabolic Panel [facility] 01/02 20:31 Order name: CBC with Diff [facility] 01/02 20:31 Order name: LFT's; Complete Time: 21:20 [facility] 01/02 20:31 Order name: Magnesium; Complete Time: 21:20 [facility] 01/02 20:31 Order name: NT PRO-BNP; Complete Time: 21:20 [facility] 01/02 20:31 Order name: PT-INR; Complete Time: 21:07 [facility] 01/02 20:31 Order name: Troponin (emerg Dept Use Only); Complete Time: 21:20 [facility] 01/02 20:31 Order name: Basic Metabolic Panel; Complete Time: 21:20 [facility] 01/02 20:31 Order name: CBC with Automated Diff; Complete Time: 21:12 [facility] 01/02 21:09 Order name: Type And Screen; Complete Time: 02:19 [facility] 01/02 21:12 Order name: Urine Dipstick-Ancillary; Complete Time: 21:14 [facility] 01/02 21:13 Order name: Urine --Ancillary (enter results); Complete Time: 21:22 3 01/02 21:14 Order name: Urine Microscopic Only 01/02 21:14 Order name: Urine Culture 01/02 21:14 Order name: Urine Microscopic Only; Complete Time: 22:29 [facility] 01/02 21:14 Order name: Urine Culture [facility] 01/02 21:43 Order name: COVID-19/FLU A+B; Complete Time: 21:45 EDMS 01/03 00:32 Order name: ABO/RH no charge; Complete Time: 02:19 EDMS 01/03 04:53 Order name: T4 Free EDMS 01/03 04:53 Order name: Thyroid Stimulating Hormone EDMS 01/03 04:53 Order name: CBC with Automated Diff EDMS 01/03 04:53 Order name: CBC with Automated Diff EDMS 01/03 04:53 Order name: Comprehensive Metabolic Panel EDMS 01/03 04:53 Order name: Comprehensive Metabolic Panel EDMS 01/03 04:53 Order name: Lipid Profile EDMS 01/03 04:53 Order name: Lipid Profile EDMS 01/03 04:54 Order name: Urinalysis EDMS 01/03 04:54 Order name: Magnesium MS 01/02 20:31 Order name: XRAY Chest (1 view); Complete Time: 21:45 7 01/02 20:31 Order name: EKG; Complete Time: 20:32 7 01/02 20:31 Order name: Cardiac monitoring; Complete Time: 20:53 7 01/02 20:31 Order name: EKG - Nurse/Tech; Complete Time: 20:53 7 01/02 20:31 Order name: IV Saline Lock; Complete Time: 20:53 7 01/02 20:31 Order name: Labs collected and sent; Complete Time: 20:53 7 01/02 20:31 Order name: O2 Per Protocol; Complete Time: 20:53 7 01/02 20:31 Order name: O2 Sat Monitoring; Complete Time: 20:53 7 01/02 20:31 Order name: Urine Dipstick-Ancillary (obtain specimen); Complete Time: 21:12 mh7 01/02 21:12 Order name: Urine Test (obtain specimen); Complete Time: 21:12 tt3 01/02 22:21 Order name: CT Chest For PE Angio 01/02 22:21 Order name: CT Abd/Pelvis - IV Contrast Only 01/03 04:53 Order name: Consistent Carb (ADA) 1800 Guido EDMS 01/03 04:54 Order name: Magnesium EDMS 01/03 04:54 Order name: Phosphorus EDMS 01/03 04:54 Order name: Phosphorus EDMS 01/03 06:05 Order name: CBC with Automated Diff EDMS 01/03 06:14 Order name: Comprehensive Metabolic Panel [facility] 01/03 06:35 Order name: Labs - recollect needed: Recollect T\T\S Gel Pen was used to label it.; eb Complete Time: 06:48 01/03 06:57 Order name: Transferrin Sat/Iron Binding EDVT 01/03 06:57 Order name: Ferritin EDVT 01/03 06:57 Order name: Folic Acid, (Folate) EDVT 01/03 06:57 Order name: Vitamin B12 Level EDMS Administered Medications: 01/02 20:54 Drug: Albuterol HFA Inhaler 2 puffs Route: Inhalation; [facility] 21:31 Drug: Lasix (furosemide) 40 mg Route: IVP; Site: right wrist; [facility] 01/03 02:34 Follow up: Response: No adverse reaction 01/02 21:31 Drug: Potassium Effervescent Tablet 50 mEq Route: PO; [facility] 01/03 02:34 Follow up: Response: No adverse reaction 01/02 21:31 Drug: Rocephin (cefTRIAXone) 1 grams Route: IV; Rate: per protocol; Site: right wrist; [facility] 01/03 05:06 Follow up: Response: No adverse reaction; IV Status: Completed infusion 01/02 22:49 Drug: Zofran (Ondansetron) 4 mg Route: IVP; Site: right wrist; 01/03 02:33 Follow up: Response: No adverse reaction 01/02 22:51 Drug: morphine 4 mg {Note: RASS 0.} Route: IVP; Site: right wrist; 01/03 02:33 Follow up: Response: No adverse reaction; Pain is decreased; RASS: Alert and Calm (0) 01/02 22:53 Drug: Potassium Chloride 20 mEq Route: IV; Rate: calculated rate; Site: right wrist; 01/03 05:05 Follow up: Response: No adverse reaction; IV Status: Completed infusion 03:21 Drug: Ambien 10 mg Route: PO; 05:05 Follow up: Response: No adverse reaction Disposition: 01/03/21 02:29 Hospitalization ordered by Pedro Escalante for Inpatient Admission. Preliminary diagnosis are Congestive Heart Failure, New Onset, Anemia. - Bed requested for Telemetry/MedSurg (Inpatient). - Status is Inpatient Admission. sv - Condition is Stable. - Problem is new. - Symptoms have improved. Signatures: Dispatcher [employer] EDVT Rajwinder Ruvalcaba RN RN Garry, Teodora, RN Leila Rehman, RN Shama Guzman, RN Marian Spencer Michele, RUTH MIRANDA [facility] Tino Walker MD MD 7 Trim, Jeffry tt3 Corrections: (The following items were deleted from the chart) 01/02 21:01 20:34 Influenza Screen (A \T\ B)+BA.LAB.BRZ ordered. EDVT EDMS 21: 20:34 CORONAVIRUS+MR.LAB.BRZ ordered. EDVT EDVT 01/03 03:41 02:29 Hospitalization Ordered by Pedro Escalante for Inpatient Admission. Preliminary diagnosis is Congestive Heart Failure, New Onset; Anemia. Bed requested for Telemetry/MedSurg (Inpatient). Status is Inpatient Admission. Condition is Stable. Problem is new. Symptoms have improved. [facility] 06:08 03:41 01/03/2021 02:29 Hospitalization Ordered by Pedro Escalante for Inpatient Admission. Preliminary diagnosis is Congestive Heart Failure, New Onset; Anemia. Bed requested for [facility] ER HOLD. Status is Inpatient Admission. Condition is Stable. Problem is new. Symptoms have improved. 08:01 06:08 01/03/2021 02:29 Hospitalization Ordered by Pedro Escalante for Inpatient Admission. Preliminary diagnosis is Congestive Heart Failure, New Onset; Anemia. Bed requested for Telemetry/MedSurg (Inpatient). Status is Inpatient Admission. Condition is Stable. Problem is new. Symptoms have improved.
[2021-01-03] MEDS ORDERED: ZOLPIDEM TARTRATE 5 MG TABLET ONE (03:37)
[2021-01-03] MEDS ORDERED: ACETAMINOPHEN 500 MG TAB PO PRN (04:52)
[2021-01-03 05:08] VITALS: BMI 37.6
--- NOTE | 2021-01-03 05:22 | P.HP ---
Certification for Inpatient Patient admitted to: Observation With expected LOS: <2 Midnights Patient will require the following post-hospital care: None Practitioner: I am a practitioner with admitting privileges, knowledge of patient current condition, hospital course, and medical plan of care. Services: Services provided to patient in accordance with Admission requirements found in Title 42 Section 412.3 of the Code of Federal Regulations <Brian Neves - Last Filed: 01/03/21 05:30> Patient History Date of Service: 01/03/21 Reason for admission: volume overload History of Present Illness: Ms. Blankenship is a 50 yo F with HTN, MD, GERD, LAURA, insomnia, psoriasis, fluid retention on lasix with recent gastric bypass surgery on Monday here for increased SOB and VILLAGRAN since yesterday morning. She said she stopped taking Lasix for 5 days before surgery as instructed. She increased her lasix at home with no relief. She says she has had SOB before but never this abd. She reports cough, edema, PND. Denies chest pain, wheezing, palpitations, orthopnea. She saw her final rail cutter last month and had a normal ECHO. She is anemic today, but discharge paperwork from Monday shows Hemoglobin has remained stable, FOBT+ possibly due to recent surgery. CT shows no PE, pulmonary congestion including small bilateral pleural effusions and recent gastric bypass. - Past Medical/Surgical History Has patient received pneumonia vaccine in the past: No Diabetic: No -: DM -: Hyperlipidemia -: HTN -: Anxiety -: Insomnia -: GERD -: Hysterctomy -: Wrist Surgery -: cholecystectomy -: gastric sleeve - Family History Father -: Hypertension, Diabetes Mother -: Hypertension, Diabetes Brother -: Hypertension - Social History Smoking Status: Never smoker Alcohol use: Yes CD- Drugs: No Caffeine use: No Place of Residence: Home <Caterina Nevesreese Sen - Last Filed: 01/03/21 05:30> Date of Service: 01/03/21 <Stephanie Martinez - Last Filed: 01/04/21 06:31> Allergies No Known Drug Allergies Allergy (Verified 01/03/21 05:08) Unknown No Known Allergies Allergy (Uncoded 01/03/21 05:08) Unknown Home Medications: Lansoprazole [Prevacid] 40 mg PO DAILY 12/06/18 Zolpidem Tartrate [Ambien] 10 mg PO BEDTIME 12/06/18 Docusate [Colace Cap] 100 mg PO DAILY PRN 01/03/21 Etanercept [Enbrel Sureclick] 50 mg SQ EVERY 7TH DAY 01/03/21 Review of Systems General: Unremarkable Eyes: Unremarkable ENT: Unremarkable Respiratory: Cough, Shortness of Breath, SOB with Excertion, As per HPI Cardiovascular: Unremarkable Gastrointestinal: Unremarkable Genitourinary: Unremarkable Musculoskeletal: Unremarkable Integumentary: Unremarkable Neurological: Unremarkable Lymphatics: Unremarkable <Brian Neves S - Last Filed: 01/03/21 05:30> Physical Examination - Physical Exam General: Alert, In no apparent distress, Oriented x3, Cooperative HEENT: Atraumatic, Normocephalic, PERRLA, Mucous membr. moist/pink, EOMI, Sclerae nonicteric Neck: Supple, 2+ carotid pulse no bruit, JVD not distended, No Thyromegaly, No LAD Respiratory: Normal air movement, Crackles/rales Cardiovascular: Normal pulses, Regular rate/rhythm, Normal S1 S2, No gallops, No rubs, No murmurs, Edema Capillary refill: <2 Seconds Gastrointestinal: Normal bowel sounds, Soft and benign, Non-distended, No ascites, No tenderness, No masses, No rebound, No guarding Musculoskeletal: No clubbing, No swelling, No contractures, No erythema, No tenderness, No warmth Integumentary: No rashes, No breakdown, No significant lesion, No te nderness/swelling, No erythema, No warmth, No cyanosis Neurological: Normal gait, Normal speech, Normal strength at 5/5 x4 extr, Normal tone, Sensation intact, Cranial nerves 3-12 intact, Normal affect Lymphatics: No axilla or inguinal lymphadenopathy - Studies Laboratory Data (last 24 hrs) 01/02/21 20:50: PT 14.5 H, INR 1.26 01/02/21 20:50: WBC 10.80, Hgb 7.8 L*, Hct 23.0 L, Plt Count 278 01/02/21 20:50: Sodium 140, Potassium 3.2 L, BUN 10, Creatinine 0.91, Glucose 130 H, Magnesium 1.8, Total Bilirubin 0.5, AST 106 H, ALT 76, Alkaline Phosphatase 98 <Brian Neves - Last Filed: 01/03/21 05:30> Assessment and Plan - Plan Assessment Volume overload, pleural effusions Anemia Hypokalemia T2DM UTI HTN GERD Psoriasis Plan Volume overload, pleural effusions - Lasix 20 mg IV BID Anemia - type and screen, continue to monitor, iron, vitamin b12, folate pending Hypokalemia - potassium replacement protocol T2DM - sliding scale insulin UTI - 1 g Ceftriaxone IV daily HTN - will reconcile and continue home medications GERD - will reconcile and continue home medications Psoriasis - will reconcile and continue home medications Discharge Plan: Home Plan to discharge in: 24 Hours - Advance Directives Does patient have a Living Will: No Does patient have a Durable POA for Healthcare: No - Code Status/Comfort Care Code Status Assessed: Yes (full code) Critical Care: No Time Spent Managing Pts Care (In Minutes): 70 <Brian Neves - Last Filed: 01/03/21 05:30> Date of Service: 01/03/21 Agree with plan of care as mentioned below. Repeat H&H. Check echocardiogram. As long as these are unremarkable then patient should be able to go home in the morning. <Stephanie Martinez - Last Filed: 01/04/21 06:31>
[2021-01-03 06:01] LABS: Absolute Lymphocytes (CBC) 2.9 K/uL (0.7-4.9); Basophils % 0.9 % (0-1.3); Lymphocytes % 25.9 % (15.3-44.8); MPV 9.4 fL (7.6-11.3); RBC Red Blood Cell Count 2.68 M/uL (3.86-4.86)
[2021-01-03 06:13] LABS: Albumin 2.5 g/dL (3.4-5.0); Bilirubin Total 0.4 mg/dL (0.2-1.0); Protein, Total 6.7 g/dL (6.4-8.2)
[2021-01-03 06:29] LABS: Thyroid Stimulating Hormone 1.49 uIU/mL (0.360-3.740)
[2021-01-03 06:57] LABS: Ferritin 104.7 ng/mL (8-388); Folic Acid, (Folate) > 20.0 ng/mL (3.1-17.5); Transferrin 202 mg/dL (200-360)
[2021-01-03] MEDS: INSULIN -REGULAR HUMAN 50 UNIT/0.5 ML ML SQ SCH ×4 (07:30→21:00)
--- NOTE | 2021-01-03 08:16 | EKG ---
Test Date: 2021-01-02 Test Time: 20:35:51 Marine Meteorologist: MG MEASUREMENT RESULTS: Intervals: Rate: 77 IN: 296 QRSD: 80 QT: 380 QTc: 430 Raysal: P: 72 IN: 296 QRS: 61 T: 42 INTERPRETIVE STATEMENTS: Sinus rhythm with 1st degree AV block Otherwise normal ECG Compared to ECG 09/28/2020 12:50:34 No significant changes Electronically Signed On 01-03-21 08:15:14 CDT by Jose Matos
[2021-01-03] MEDS: CEFTRIAXONE/SWI 1gm 1 GM/10 ML SYR IV SCH (08:57)
[2021-01-03] MEDS ORDERED: POTASSIUM CL SA 10 MEQ TAB PO ONE (09:00)
[2021-01-03] MEDS ORDERED: FUROSEMIDE 20 MG/ 2ML VIAL IV SCH (09:00)
[2021-01-03 09:03] LABS: Blood Morphology Comment NOT SEEN (NOT SEEN); Platelet Estimate ADEQ
[2021-01-03] MEDS ORDERED: NA CHLORIDE 0.9% 250 ML ONE ×2 (09:33→14:53)
[2021-01-03] MEDS ORDERED: PNEUMOCOCCAL VACCINE 0.5 ML IMVAC ONE (10:00)
[2021-01-03] MEDS: ONDANSETRON 4 MG/2 ML VIAL IV PRN ×2 (10:03→17:50)
[2021-01-03] MEDS ORDERED: ACETAMINOPHEN 160 MG/5 ML UCUP PO PRN (10:59)
[2021-01-03] MEDS ORDERED: DOCUSATE NA 100 MG CAP PO PRN (11:00)
--- NOTE | 2021-01-03 12:15 | RAD REPORT ---
EXAM DESCRIPTION: CT - Abdomen Pelvis W Contrast - 01/03/2021 6:18 am CLINICAL HISTORY: Shortness of breath, chest pain TECHNIQUE: Contiguous axial images obtained through the chest during angiographic phase following th e uneventful administration of IV contrast. Sagittal and coronal reformatted images were provided. DC P reformatted images were provided. This exam was performed according to our departmental dose-optimization program, which includes autom ated exposure control, adjustment of the mA and/or kV according to patient size and/or use of iterati ve reconstruction technique. COMPARISON: 03/08/2020 FINDINGS: Diagnostic quality: There is good opacification of the pulmonary arterial tree. Motion art ifact degrades image quality and limits evaluation of segmental and subsegmental vessels. Lungs: Multifocal groundglass opacities in a perihilar distribution. Mild interstitial thickening. rways are patent. Pleura: Small bilateral pleural effusions, right greater than left. No pneumothorax. Heart and pericardium: The heart is mildly enlarged. No pericardial effusion. Mediastinum and kayla: Top normal mediastinal lymph nodes measuring up to 10 mm in short axis. Lower neck and chest wall: Stable 8 mm right breast nodule (series 401 image 70). Vessels: No pulmonary arterial filling defects. No thoracic aortic aneurysm. Bones: Minimal multilevel spondylosis. No acute fracture. EXAM DESCRIPTION: CT ABDOMEN PELVIS WITH IV CONTRAST (accession [id number]) CLINICAL HISTORY: S/p gastric bypass; GI bleed TECHNIQUE: Contiguous axial images obtained through the abdomen and pelvis following the uneventful administration of IV contrast. Coronal and sagittal reformatted images were provided. This exam was performed according to our departmental dose-optimization program, which includes autom ated exposure control, adjustment of the mA and/or kV according to patient size and/or use of iterati ve reconstruction technique. COMPARISON: 07/15/2015 FINDINGS: Liver: The liver is enlarged and diffusely low in density compatible with steatosis. Gallbladder and biliary system: Prior cholecystectomy. Pancreas: Unremarkable Spleen: Unremarkable Adrenals: Unremarkable Kidneys: Normal renal cortical enhancement. Subcentimeter cortical hypodensities bilaterally which ar e too small to characterize. Punctate bilateral calculi. No hydronephrosis. Bowel: Interval gastric bypass. No obstruction. No appreciable mucosal thickening. Appendix: Normal caliber appendix. No findings to suggest acute appendicitis. Urinary bladder: Unremarkable Reproductive: There has been a hysterectomy. No adnexal cysts or masses are identified. Lymph nodes: No pathologically enlarged lymph nodes. Peritoneum: Small amount of free fluid within the pelvis. No free air. Vessels: No abdominal aortic aneurysm. Abdominal wall: Mild body wall edema. Scattered port sites. Right abdominal wall soft tissue gas. Bones: Minimal multilevel spondylosis. No acute fracture. IMPRESSION: CTA CHEST: 1. Motion artifact degrades image quality and limits evaluation of segmental and subsegmental vesse ls. No central pulmonary embolic disease. 2. Findings which may be related to pulmonary congestion including small bilateral pleural effusion s. Superimposed infection not excluded. 3. Other findings as above. CT ABDOMEN PELVIS: 1. Recent gastric bypass. Expected postoperative appearance without focal complication. 2. Other findings as above. Electronically signed by: Walter Will MD 01/03/2021 1:43 AM CDT Due to temporary technical issues with the PACS/Fluency reporting system, reports are being signed by the in house radiologists without review as a courtesy to insure prompt reporting. The interpreting radiologist is fully responsible for the content of the report
--- NOTE | 2021-01-03 12:33 | RAD REPORT ---
EXAM DESCRIPTION: CT - Chest For Pe Angio - 01/03/2021 6:17 am CLINICAL HISTORY: Shortness of breath, chest pain TECHNIQUE: Contiguous axial images obtained through the chest during angiographic phase following th e uneventful administration of IV contrast. Sagittal and coronal reformatted images were provided. TX P reformatted images were provided. This exam was performed according to our departmental dose-optimization program, which includes autom ated exposure control, adjustment of the mA and/or kV according to patient size and/or use of iterati ve reconstruction technique. COMPARISON: 03/08/2020 FINDINGS: Diagnostic quality: There is good opacification of the pulmonary arterial tree. Motion art ifact degrades image quality and limits evaluation of segmental and subsegmental vessels. Lungs: Multifocal groundglass opacities in a perihilar distribution. Mild interstitial thickening. rways are patent. Pleura: Small bilateral pleural effusions, right greater than left. No pneumothorax. Heart and pericardium: The heart is mildly enlarged. No pericardial effusion. Mediastinum and kayla: Top normal mediastinal lymph nodes measuring up to 10 mm in short axis. Lower neck and chest wall: Stable 8 mm right breast nodule (series 401 image 70). Vessels: No pulmonary arterial filling defects. No thoracic aortic aneurysm. Bones: Minimal multilevel spondylosis. No acute fracture. EXAM DESCRIPTION: CT ABDOMEN PELVIS WITH IV CONTRAST (accession [id number]) CLINICAL HISTORY: S/p gastric bypass; GI bleed TECHNIQUE: Contiguous axial images obtained through the abdomen and pelvis following the uneventful administration of IV contrast. Coronal and sagittal reformatted images were provided. This exam was performed according to our departmental dose-optimization program, which includes autom ated exposure control, adjustment of the mA and/or kV according to patient size and/or use of iterati ve reconstruction technique. COMPARISON: 07/15/2015 FINDINGS: Liver: The liver is enlarged and diffusely low in density compatible with steatosis. Gallbladder and biliary system: Prior cholecystectomy. Pancreas: Unremarkable Spleen: Unremarkable Adrenals: Unremarkable Kidneys: Normal renal cortical enhancement. Subcentimeter cortical hypodensities bilaterally which ar e too small to characterize. Punctate bilateral calculi. No hydronephrosis. Bowel: Interval gastric bypass. No obstruction. No appreciable mucosal thickening. Appendix: Normal caliber appendix. No findings to suggest acute appendicitis. Urinary bladder: Unremarkable Reproductive: There has been a hysterectomy. No adnexal cysts or masses are identified. Lymph nodes: No pathologically enlarged lymph nodes. Peritoneum: Small amount of free fluid within the pelvis. No free air. Vessels: No abdominal aortic aneurysm. Abdominal wall: Mild body wall edema. Scattered port sites. Right abdominal wall soft tissue gas. Bones: Minimal multilevel spondylosis. No acute fracture. IMPRESSION: CTA CHEST: 1. Motion artifact degrades image quality and limits evaluation of segmental and subsegmental vesse ls. No central pulmonary embolic disease. 2. Findings which may be related to pulmonary congestion including small bilateral pleural effusion s. Superimposed infection not excluded. 3. Other findings as above. CT ABDOMEN PELVIS: 1. Recent gastric bypass. Expected postoperative appearance without focal complication. 2. Other findings as above. Electronically signed by: Walter Will MD 01/03/2021 1:43 AM CDT Due to temporary technical issues with the PACS/Fluency reporting system, reports are being signed by the in house radiologists without review as a courtesy to insure prompt reporting. The interpreting radiologist is fully responsible for the content of the report
[2021-01-03] MEDS ORDERED: KCL 20 MEQ/100 mL IVPB 20 MEQ/100 ML BAG IV SCH (14:00)
[2021-01-03 14:53] LABS: Hematocrit 28.3 % (36.0-45.0)
[2021-01-03 17:40] LABS: Absolute Lymphocytes (CBC) 2.9 K/uL (0.7-4.9); Basophils % 0.3 % (0-1.3); Hematocrit 27.3 % (36.0-45.0); Lymphocytes % 25.6 % (15.3-44.8); MPV 8.6 fL (7.6-11.3); RBC Red Blood Cell Count 3.22 M/uL (3.86-4.86)
[2021-01-03] MEDS: guaiFENesin 100 MG/5 ML UCUP PO PRN (20:51)
[2021-01-04] MEDS: guaiFENesin 100 MG/5 ML UCUP PO PRN (05:00)
[2021-01-04 06:00] LABS: Absolute Lymphocytes (CBC) 2.9 K/uL (0.7-4.9); Basophils % 1.3 % (0-1.3); Hematocrit 28.8 % (36.0-45.0); MPV 9.5 fL (7.6-11.3); RBC Red Blood Cell Count 3.39 M/uL (3.86-4.86)
[2021-01-04 06:17] LABS: Albumin 2.8 g/dL (3.4-5.0); Bilirubin Total 0.5 mg/dL (0.2-1.0); Potassium 3.1 mmol/L (3.5-5.1); Protein, Total 7.6 g/dL (6.4-8.2)
[2021-01-04 06:18] VITALS: BP 142/84
--- NOTE | 2021-01-04 06:36 | P.DS ---
Discharge Date: 01/04/21 Reason for Admission: volume overload Brief History of Present Illness: Ms. Blankenship is a 50 yo F with HTN, MD, GERD, LAURA, insomnia, psoriasis, fluid retention on lasix with recent gastric bypass surgery on Monday here for increased SOB and VILLAGRAN since yesterday morning. She said she stopped taking Lasix for 5 days before surgery as instructed. She increased her lasix at home with no relief. She says she has had SOB before but never this abd. She reports cough, edema, PND. Denies chest pain, wheezing, palpitations, orthopnea. She saw her cigarette machine filler last month and had a normal ECHO. She is anemic today, but discharge paperwork from Monday shows Hemoglobin has remained stable, FOBT+ possibly due to recent surgery. CT shows no PE, pulmonary congestion including small bilateral pleural effusions and recent gastric bypass. <Stephanie Martinez - Last Filed: 01/04/21 06:36> Primary Care Provider: Yvette Dejesus NP Consultations: COVID: Negative CT Scan: FINDINGS: Diagnostic quality: There is good opacification of the pulmonary arterial tree. Motion artifact degrades image quality and limits evaluation of segmental and subsegmental vessels. Lungs: Multifocal groundglass opacities in a perihilar distribution. Mild interstitial thickening. Airways are patent. Pleura: Small bilateral pleural effusions, right greater than left. No pneumothorax. Heart and pericardium: The heart is mildly enlarged. No pericardial effusion. Mediastinum and kayla: Top normal mediastinal lymph nodes measuring up to 10 mm in short axis. Lower neck and chest wall: Stable 8 mm right breast nodule (series [id number] image [id number]). Vessels: No pulmonary arterial filling defects. No thoracic aortic aneurysm. Bones: Minimal multilevel spondylosis. No acute fracture. EXAM DESCRIPTION: CT ABDOMEN PELVIS WITH IV CONTRAST (accession [id number]) CLINICAL HISTORY: S/p gastric bypass; GI bleed TECHNIQUE: Contiguous axial images obtained through the abdomen and pelvis following the uneventful administration of IV contrast. Coronal and sagittal reformatted images were provided. This exam was performed according to our departmental dose-optimization program, which includes automated exposure control, adjustment of the mA and/or kV according to patient size and/or use of iterative reconstruction technique. COMPARISON: 07/15/2015 FINDINGS: Liver: The liver is enlarged and diffusely low in density compatible with steatosis. Gallbladder and biliary system: Prior cholecystectomy. Pancreas: Unremarkable Spleen: Unremarkable Adrenals: Unremarkable Kidneys: Normal renal cortical enhancement. Subcentimeter cortical hypodensities bilaterally which are too small to characterize. Punctate bilateral calculi. No hydronephrosis. Bowel: Interval gastric bypass. No obstruction. No appreciable mucosal thickening. Appendix: Normal caliber appendix. No findings to suggest acute appendicitis. Urinary bladder: Unremarkable Reproductive: There has been a hysterectomy. No adnexal cysts or masses are identified. Lymph nodes: No pathologically enlarged lymph nodes. Peritoneum: Small amount of free fluid within the pelvis. No free air. Vessels: No abdominal aortic aneurysm. Abdominal wall: Mild body wall edema. Scattered port sites. Right abdominal wall soft tissue gas. Bones: Minimal multilevel spondylosis. No acute fracture. IMPRESSION: CTA CHEST: 1. Motion artifact degrades image quality and limits evaluation of segmental and subsegmental vessels. No central pulmonary embolic disease. 2. Findings which may be related to pulmonary congestion including small bilateral pleural effusions. Superimposed infection not excluded. 3. Other findings as above. CT ABDOMEN PELVIS: 1. Recent gastric bypass. Expected postoperative appearance without focal complication. 2. Other findings as above. Medical Problem List: Shortness of breath secondary to pulmonary edema/bilateral pleural effusions Anemia likely of chronic disease with recent gastric bypass surgery Recent gastric bypass GERD Asymptomatic bacteriuria Hospital Course: Patient was seen and evaluated for shortness of breath secondary to pulmonary edema. Bilateral pleural effusions noted. Patient recently had a gastric bypass. She was taking Lasix prior to the procedure. Medication was held 5 days prior. Patient was admitted due to worsening symptoms. Patient improved with diuresis. Recent echocardiogram as reported by patient was unremarkable. Repeat echocardiogram was obtained. This can be followed up with her cigarette machine filler. Patient without significant shortness of breath. At discharge she will continue with the 1500 cc/day fluid restriction. Patient will continue with Lasix 40 mg daily. Recommend to monitor her weight daily. If her weight increases by more than 5 pounds she is to contact her PCP or cigarette machine filler for further recommendation. Further adjustment in medication can be done by her PCP or cardiology. Recommend to recheck chest x-ray in 2 to 4 weeks to monitor resolution. Patient with history of GERD. Patient with recent gastric bypass surgery. At discharge she will continue with her current medication. Patient with anemia likely of chronic disease with recent gastric bypass surgery. Hemoglobin was low. Patient required transfusion. Patient has done well postoperatively. Patient will continue with iron supplementation. Recommend to recheck CBC in 1 to 2 weeks to monitor her progress. Patient with asymptomatic bacteriuria. No indication for antibiotics at this time. This can be followed up by her PCP. <Fercho Larson - Last Filed: 01/04/21 10:08> Disposition: ROUTINE DISCHARGE Discharge Condition: GOOD Vital Signs/Physical Exam: Temp Pulse Resp BP Pulse Ox 98.9 F 68 20 142/84 H 95 01/04/21 04:00 01/04/21 04:00 01/04/21 04:00 01/04/21 04:00 01/04/21 04:00 Laboratory Data at Discharge: WBC 11.30 K/uL (4.3-10.9) H 01/04/21 05:24 Hgb 9.3 g/dL (12.0-15.0) L 01/04/21 05:24 Hct 28.8 % (36.0-45.0) L 01/04/21 05:24 Plt Count 339 K/uL (152-406) 01/04/21 05:24 PT 14.5 SECONDS (9.5-12.5) H 01/02/21 20:50 INR 1.26 01/02/21 20:50 Sodium 140 mmol/L (136-145) 01/04/21 05:24 Potassium 3.1 mmol/L (3.5-5.1) L 01/04/21 05:24 BUN 10 mg/dL (7-18) 01/04/21 05:24 Creatinine 0.77 mg/dL (0.55-1.3) 01/04/21 05:24 Glucose 115 mg/dL (74-106) H 01/04/21 05:24 Phosphorus 2.0 mg/dL (2.5-4.9) L 01/04/21 05:24 Magnesium 2.0 mg/dL (1.8-2.4) 01/04/21 05:24 Total Bilirubin 0.5 mg/dL (0.2-1.0) 01/04/21 05:24 AST 39 U/L (15-37) H 01/04/21 05:24 ALT 53 U/L (12-78) 01/04/21 05:24 Alkaline Phosphatase 121 U/L (45-117) H 01/04/21 05:24 Triglycerides 274 mg/dL (<150) H 01/04/21 05:24 Cholesterol 173 mg/dL (<200) 01/04/21 05:24 HDL Cholesterol 32 mg/dL (40-60) L 01/04/21 05:24 Cholesterol/HDL Ratio 5.41 01/04/21 05:24 <Stephanie Martinez - Last Filed: 01/04/21 06:36> Vital Signs/Physical Exam: Temp Pulse Resp BP Pulse Ox 99.2 F 68 18 142/84 H 96 01/04/21 08:00 01/04/21 09:02 01/04/21 08:00 01/04/21 09:02 01/04/21 08:00 General: Alert, In no apparent distress, Oriented x3, Cooperative HEENT: Atraumatic Neck: Supple Respiratory: Clear to auscultation bilaterally, Normal air movement Cardiovascular: Normal pulses, Regular rate/rhythm Gastrointestinal: Normal bowel sounds, Soft and benign, Non-distended, No tenderness, No masses, No rebound, No guarding Musculoskeletal: No erythema, No tenderness, No warmth Integumentary: No tenderness/swelling Neurological: Normal speech, Normal strength at 5/5 x4 extr, Normal tone, Normal affect Laboratory Data at Discharge: WBC 11.30 K/uL (4.3-10.9) H 01/04/21 05:24 Hgb 9.3 g/dL (12.0-15.0) L 01/04/21 05:24 Hct 28.8 % (36.0-45.0) L 01/04/21 05:24 Plt Count 339 K/uL (152-406) 01/04/21 05:24 PT 14.5 SECONDS (9.5-12.5) H 01/02/21 20:50 INR 1.26 01/02/21 20:50 Sodium 140 mmol/L (136-145) 01/04/21 05:24 Potassium 3.1 mmol/L (3.5-5.1) L 01/04/21 05:24 BUN 10 mg/dL (7-18) 01/04/21 05:24 Creatinine 0.77 mg/dL (0.55-1.3) 01/04/21 05:24 Glucose 115 mg/dL (74-106) H 01/04/21 05:24 Phosphorus 2.0 mg/dL (2.5-4.9) L 01/04/21 05:24 Magnesium 2.0 mg/dL (1.8-2.4) 01/04/21 05:24 Total Bilirubin 0.5 mg/dL (0.2-1.0) 01/04/21 05:24 AST 39 U/L (15-37) H 01/04/21 05:24 ALT 53 U/L (12-78) 01/04/21 05:24 Alkaline Phosphatase 121 U/L (45-117) H 01/04/21 05:24 Triglycerides 274 mg/dL (<150) H 01/04/21 05:24 Cholesterol 173 mg/dL (<200) 01/04/21 05:24 HDL Cholesterol 32 mg/dL (40-60) L 01/04/21 05:24 Cholesterol/HDL Ratio 5.41 01/04/21 05:24 <Fercho Larson - Last Filed: 01/04/21 10:08> Diet: AHA Activity: Fall precautions <Stephanie Martinez - Last Filed: 01/04/21 06:36> Time spent managing pt's care (in minutes): 55 <Fercho Larson - Last Filed: 01/04/21 10:08> Home Medications: Lansoprazole [Prevacid] 40 mg PO DAILY 12/06/18 Zolpidem Tartrate [Ambien] 10 mg PO BEDTIME 12/06/18 Docusate [Colace Cap*] 100 mg PO DAILY PRN 01/03/21 Etanercept [Enbrel Sureclick] 50 mg SQ EVERY 7TH DAY 01/03/21 Ferrous Sulfate [Ferrous Sulfate Elixir] 5 ml PO Q12H #300 ml 01/04/21 Furosemide [Lasix] 40 mg PO DAILY #30 tablet 01/04/21 New Medications: Ferrous Sulfate [Ferrous Sulfate Elixir] 5 ml PO Q12H #300 ml Furosemide [Lasix] 40 mg PO DAILY #30 tablet Physician Discharge Instructions: Patient was seen and evaluated for shortness of breath secondary to pulmonary edema. Bilateral pleural effusions noted. Patient recently had a gastric bypass. She was taking Lasix prior to the procedure. Medication was held 5 days prior. Patient was admitted due to worsening symptoms. Patient improved with diuresis. Recent echocardiogram as reported by patient was unremarkable. Repeat echocardiogram was obtained. This can be followed up with her cigarette machine filler. Patient without significant shortness of breath. At discharge she will continue with the 1500 cc/day fluid restriction. Patient will continue with Lasix 40 mg daily. Recommend to monitor her weight daily. If her weight increases by more than 5 pounds she is to contact her PCP or cigarette machine filler for further recommendation. Further adjustment in medication can be done by her PCP or cardiology. Recommend to recheck chest x-ray in 2 to 4 weeks to monitor resolution. Patient with history of GERD. Patient with recent gastric bypass surgery. At discharge she will continue with her current medication. Patient with anemia likely of chronic disease with recent gastric bypass surgery. Hemoglobin was low. Patient required transfusion. Patient has done well postoperatively. Patient will continue with iron supplementation. Recommend to recheck CBC in 1 to 2 weeks to monitor her progress. Patient with asymptomatic bacteriuria. No indication for antibiotics at this time. This can be followed up by her PCP. Followup: Jose Matos MD [ACTIVE - CAN ADMIT] - Yvette Doyle FNPC [Primary Care Provider] -
[2021-01-04] MEDS: INSULIN -REGULAR HUMAN 50 UNIT/0.5 ML ML SQ SCH (07:30)
[2021-01-04 08:04] VITALS: O2SAT 99
[2021-01-04] MEDS ORDERED: PANTOPRAZOLE 40MG TABLET PO SCH (09:00)
[2021-01-04] MEDS ORDERED: POTASSIUM CL SA 10 MEQ TAB PO ONE (09:00)
[2021-01-04] MEDS: POTASS/SODIUM PHOSPHATE 1 PKT POWD.PACK PO SCH ×2 (09:00→10:00)
[2021-01-04] MEDS ORDERED: POTASSIUM 25 MEQ EFFERV TAB PO ONE (09:00)
[2021-01-04] MEDS: FUROSEMIDE 20 MG/ 2ML VIAL IV SCH ×2 (09:00→09:02)
[2021-01-04] MEDS ORDERED: SOD FERRIC GLUC COMPLX/SUCROSE 125 MG in NA CHLORIDE 0.9% 100 ML IV SCH (09:00)
[2021-01-04] MEDS ORDERED: CEFTRIAXONE 1 GM/NS 50 ML 1 GM/50 ML BAG IV SCH (09:00)
[2021-01-04] MEDS: CEFTRIAXONE/SWI 1gm 1 GM/10 ML SYR IV SCH (09:02)
[2021-01-04 09:11] VITALS: TEMP 99.2
--- NOTE | 2021-01-04 10:54 | ECHO ---
HEIGHT: 5 ft 2 in WEIGHT: 205 lb 15.999 oz DATE OF STUDY: 01/04/[address]: Stephanie Martinez MD 2-DIMENSIONAL: YES M.MODE: YES DOPPLER: YES COLOR FLOW: YES TDS: PORTABLE: DEFINITY: BUBBLE STUDY: DIAGNOSIS: CONGESTIVE HEART FAILURE CARDIAC HISTORY: CATHERIZATION: NO SURGERY: NO PROSTHETIC VALVE: NO PACEMAKER: NO MEASUREMENTS (cm) DIASTOLIC (NORMALS) SYSTOLIC (NORMALS) IVSd 1.0 (0.6-1.2) LA Diam 3.0 (1.9-4.0) LVEF 56% LVIDd 3.3 (3.5-5.7) LVIDs 2.3 (2.0-3.5) %FS 28% LVPWd 1.0 (0.6-1.2) Ao Diam 2.3 (2.0-3.7) 2 DIMENSIONAL ASSESSMENT: RIGHT ATRIUM: NORMAL LEFT ATRIUM: NORMAL RIGHT VENTRICLE: NORMAL LEFT VENTRICLE: NORMAL TRICUSPID VALVE: NORMAL MITRAL VALVE: NORMAL PULMONIC VALVE: NORMAL AORTIC VALVE: NORMAL PERICARDIAL EFFUSION: NONE AORTIC ROOT: NORMAL LEFT VENTRICULAR WALL MOTION: NORMAL DOPPLER/COLOR FLOW: NORMAL COMMENTS: NORMAL 2-DIMENSIONAL ECHOCARDIOGRAM WITH DOPPLER. NO WALL MOTION ABNORMALITY. NO EFFUSION. TECHNOLOGIST: LYLA PORTILLO
[2021-01-04] MEDS ORDERED: ZOLPIDEM TARTRATE 5 MG TABLET PO PRN (21:00)
[2021-01-10] MEDS ORDERED: ENBREL SURECLICK SQ SCH (09:00)
== END 2021-01-04 12:16 | disposition home or self-care (01) | DRG 292 ==
LOC: ER 19:52 → ERHOLD 01-03 04:58 → 2ND 01-03 07:32
PROVIDERS: ADMIT Hospitalist; ATTEND Family Medicine
PROC: 30233N1 Transfusion of Nonautologous Red Blood Cells into Peripheral Vein, Percutaneous Approach (ICD-10-PCS; principal; 2021-01-03)
DX: I11.0 Hypertensive heart disease with heart failure (principal); D62 Acute posthemorrhagic anemia; N39.0 Urinary tract infection, site not specified; I50.33 Acute on chronic diastolic (congestive) heart failure; G47.00 Insomnia, unspecified; D63.8 Anemia in other chronic diseases classified elsewhere; E87.6 Hypokalemia; L40.9 Psoriasis, unspecified; E78.5 Hyperlipidemia, unspecified; E11.9 Type 2 diabetes mellitus without complications; K21.9 Gastro-esophageal reflux disease without esophagitis; R82.71 Bacteriuria; Z90.710 Acquired absence of both cervix and uterus; Z79.899 Other long term (current) drug therapy; Z90.49 Acquired absence of other specified parts of digestive tract; Z98.84 Bariatric surgery status; Z20.822 Contact with and (suspected) exposure to COVID-19
CPT/HCPCS: 0240U; 36415; 36430; 71045; 71275; 74177; 80048; 80053; 80061; 80076; 81003; 81015; 81025; 82607; 82728; 82746; 82947; 83540; 83735; 83880; 84100; 84132; 84439; 84443; 84466; 84484; 85014; 85018; 85025; 85610; 86850; 86900; 86901; 87077; 87086; 87088; 87186; 93005; 93306; 94760; 96365; 96366; 96375; 99285; J0696; J1940; J2405; J2916; J3480; J7050; P9016; Q9967